=== PATIENT | male | born 1955 | race Caucasian/White ===

== ENCOUNTER 2020-06-14 14:39 | Emergency (ER) | payer OTHER, MEDICARE, SELFPAY ==
[2020-06-14 14:53] VITALS: BP 156/69; BP 164/75; PULSE 62; PULSE 69; RESP 18; TEMP 36.6; O2SAT 100; BMI 23.6
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
[2020-06-14 16:00] VITALS: BP 149/69; PULSE 69; RESP 18; TEMP 37.4; O2SAT 98
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
[2020-06-14] MEDS: HYDROcodone Bit/Acetam 5/325 TABLET 1 TAB PO (17:01)
--- NOTE | 2020-06-14 17:10 | PC.NURSE ---
Pt's c-collar cleared by . Medicated for pain. VSS.
== END 2020-06-14 18:00 | disposition home or self-care (01) ==
PROVIDERS: Emergency Provider Emergency Medicine
DX: S13.4XXA Sprain of ligaments of cervical spine, initial encounter (principal); S16.1XXA Strain of muscle, fascia and tendon at neck level, initial encounter; M54.2 Cervicalgia; M25.521 Pain in right elbow; R07.89 Other chest pain; V43.62XA Car passenger injured in collision with other type car in traffic accident, initial encounter; Y93.9 Activity, unspecified; Y92.410 Unspecified street and highway as the place of occurrence of the external cause; Y99.9 Unspecified external cause status; Z79.899 Other long term (current) drug therapy
CPT/HCPCS: 70450; 71250; 72125; 73080; 99283; 99284

== ENCOUNTER 2020-08-25 07:07 | Outpatient (REF) | payer MEDICARE, SELFPAY ==
[2020-08-25 11:32] LABS: Hemoglobin 15.7 g/dl (14.0-18.0); Mean Corpuscular HGB Conc 32.7 g/dl (31.0-36.0); Mean Corpuscular Hemoglobin 30.5 pg (27.0-33.0); Mean Corpuscular Volume 93.2 fL (80-98); Mean Platelet Volume 10.5 fL (9.4-12.4); Platelet Count 316 X10*3/uL (160-400); Red Blood Count 5.15 X10*6/uL (4.60-5.80); Red Cell Distribution Width 12.7 % (11.0-16.0); White Blood Count 5.5 X10*3/uL (4.8-10.8)
[2020-08-25 11:56] LABS: Alanine Aminotransferase 20 U/L (0-40); Albumin Level 4.8 g/dL (3.5-5.0); Alkaline Phosphatase 40 U/L (39-117); Anion Gap 13 (12-20); Aspartate Amino Transferase 23 U/L (5-37); Bilirubin Total 0.7 mg/dL (0.0-1.0); Blood Urea Nitrogen 10 mg/dL (9-16); Calcium 9.3 mg/dL (8.4-10.2); Carbon Dioxide 28 mmol/L (22-29); Chloride 103 mmol/L (96-108); Cholesterol 173 mg/dL; Estimated Glomerular Filt Rate > 60; Glucose Fasting 112 mg/dL (60-99); HDL Cholesterol 52 mg/dL; LDL Cholesterol Calculated 104 mg/dl; Potassium 4.3 mmol/l (3.3-5.1); Sodium 140 mmol/L (135-145); Total Protein 7.7 g/dL (6.5-8.0); Triglycerides 86 mg/dL
== END 2020-08-25 07:08 | disposition home or self-care (01) ==
LOC: HO.HMGCLDS 07:07
PROVIDERS: PCP Internal Medicine; Visit Provider Internal Medicine
DX: I10 Essential (primary) hypertension (principal); M47.812 Spondylosis without myelopathy or radiculopathy, cervical region
CPT/HCPCS: 36415; 80053; 80061; 85027

== ENCOUNTER 2020-09-09 09:09 | Emergency (ER) | payer MEDICARE, SELFPAY ==
--- NOTE | ~2020-09-09 | CT_ITS ---
EXAMINATION: CT HEAD WITHOUT CONTRAST CLINICAL INFORMATION: Dizziness COMPARISON: None TECHNIQUE: Contiguous axial imaging was performed from the skull base to vertex without intravenous administration of contrast. This CT examination was performed using dose optimization techniques as appropriate, variously including the following: *Automated exposure control *Adjustment of mA and/or kV according to patient size (this includes techniques or standardized protocols for targeted exams where dose is matched to indication/reason for exam; i.e. extremities or head) *Use of iterative reconstruction technique DLP: 701 mGy-cm FINDINGS: There is no evidence of acute intracranial hemorrhage or territorial infarction. No abnormal mass effect or midline shift is seen. Dent to white matter differentiation is well preserved. No extra-axial fluid collections are identified. The ventricles are symmetrical but enlarged. There is mild periventricular hypodensity in both cerebral hemispheres without mass effect The osseous structures and soft tissues are normal. The mastoid air cells and visualized portions of the paranasal sinuses are well aerated. CT/CT head/brain wo con IMPRESSION: No acute intracranial process seen. Mild cerebral volume loss with chronic small vessel ischemic changes in both cerebral hemispheres.
[2020-09-09 09:23] VITALS: BP 138/58; BP 168/84; PULSE 57; PULSE 69; RESP 12; TEMP 36; O2SAT 100; O2SAT 96; BMI 23.4
--- NOTE | 2020-09-09 09:31 | ECG_ITS ---
Test Reason : DIZZINESS Blood Pressure : / mmHG Vent. Rate : 057 BPM Atrial Rate : 057 BPM P-R Int : 180 ms QRS Dur : 146 ms QT Int : 498 ms P-R-T Axes : 055 005 065 degrees QTc Int : 484 ms Sinus bradycardia Left bundle branch block Abnormal ECG When compared with ECG of 05-JUL-2017 07:06, No significant change was found Referred By: Madelyn Elliott Electronically Signed By:DION ROGERS
--- NOTE | 2020-09-09 09:32 | ED.DIZZY ---
HPI - Dizziness General Chief Complaint: Dizziness Stated Complaint: vertigo Time Seen by Provider: 09/09/20 09:21 History of Present Illness HPI Narrative: 64 years old with a history of vertigo in the past. Presents today having sudden onset of spinning sensation that trigger nausea vomiting. It was extremely abrupt. It is worse with movement. Improved with resting. Patient claims that she finished yoga. Subsequently the symptoms started. There is no focal weakness. There is no headache. No head injury. No coughing or congestion or upper respiratory symptoms. No chest pain. Related Data Home Medications Medication Instructions Recorded Confirmed baclofen 10 mg tablet 10 mg PO TID 08/22/20 08/22/20 omeprazole 20 mg capsule,delayed 20 mg PO BID 08/22/20 08/22/20 release Previous Rx's Medication Instructions Recorded lidocaine [Lidoderm] 1 patch TOPICAL DAILY #15 ea 06/14/20 amlodipine 2.5 mg tablet 2.5 mg PO DAILY #90 tab 08/22/20 meclizine 25 mg PO TID PRN #14 tab 09/09/20 ondansetron 4 mg PO TID PRN 5 Days #10 tab 09/09/20 Allergies Allergy/AdvReac Type Severity Reaction Status Date / Time Penicillins [PENICILLINS] Allergy Unknown RASH Verified 06/14/20 17:00 Review of Systems Review of Systems: Constitutional: No Weight loss, No Fever, No Chills, No Night Sweats, No Fatigue, No Malaise ENT/Mouth: No Hearing loss, No Ear Pain, No Nasal Congestion, No Sinus Pain, No Hoarseness, No sore throat, No Rhinorrhea, No Swallowing Difficulty Eyes: No Eye Pain, No Swelling, No Redness, No Foreign Body, No Discharge, No Vision Changes Cardiovascular: No Chest Pain, No SOB, No Dyspnea on Exertion, No Orthopnea, No Edema, No Palpitations Respiratory: No Cough, No Sputum, No Wheezing, No Smoke Exposure, No Dyspnea Gastrointestinal: No Nausea, No Vomiting, No Diarrhea, No Constipation, No abdominal Pain, No Hematochezia, No Melena Genitourinary: no irregular bleeding, No Dysuria, No Urinary Frequency, No Hematuria, No Urinary Incontinence, No Urgency, No Flank Pain, No Urinary Flow Changes, No Hesitancy Musculoskeletal: No joint pain, No Myalgias, No Joint Swelling Skin: No Skin Lesions, No rash Neuro: No Weakness, No Numbness, No Paresthesias, No Loss of Consciousness, positive vertigo, No Headache Psych: No Anxiety/Panic, No Depression, No SI/HI/AH/VH, No Social Issues, Heme/Lymph: No Bruising, No Bleeding,No Lymphadenopathy Endocrine: No Polyuria, No Polydipsia, No Temperature Intolerance PMFSH Past Medical History Attestation statement: The following information was validated with the patient. Medical History Cervical spine degeneration GERD (gastroesophageal reflux disease) HTN (hypertension) Normal colonoscopy Surgical History H/O cervical spine surgery Hx of cholecystectomy Social History Social History Alcohol intake: never Smoking Status: Never smoker Substance Use Type: Marijuana Advance Directives: No Advance Directives Information Provided: No Physical Exam Vital Signs: Vital Signs: Last Vital Signs Temp 96.8 F 09/09/20 09:23 Pulse 57 09/09/20 09:23 Resp 12 09/09/20 09:23 BP 138/58 L 09/09/20 09:23 Pulse Ox 96 09/09/20 09:23 Body Mass Index 23.4 Appearance: Alert. Oriented X3. No acute distress. Eyes: Pupils equal, round and reactive to light. ENT: Pharynx normal. Neck: Normal inspection. Neck supple. No lymph nodes noted. No crepitus CVS: Normal heart rate and rhythm. Pulses normal. Normal S1 and S2 Respiratory: No respiratory distress. Breath sounds normal. No Wheezing. No rales Abdomen: Soft and nontender. No rigidity. No distention. good BS x4 Skin: Skin warm and dry. Normal skin color. Normal skin turgor. Extremities: No lower extremity edema. Neurovascular intact to all extremities. No Lacerations. No Rash Neuro: Oriented X 3. No motor deficit. No sensory deficit. Moving all extermities. No slurred speech. Positive Hallpike MDM - Dizziness MDM Narrative Medical decision making narrative: Patient's symptoms sudden onset. Extreme. Took Antivert prior to arrival. Upon arrival symptoms improving while in the emergency department. CT scan of the head was negative. Electrolytes unremarkable. Will discharge patient home. History of similar symptoms. The symptoms were very abrupt in onset. Was extreme many had initially. This is all consistent with having peripheral vertigo. He is neurologically intact. Currently in stable condition. Differential Diagnosis Differential diagnosis: Likely benign paroxysmal positional vertigo Medical Records Attestation: I reviewed the patient's medical records. Lab Data Attestation: I reviewed the patient's lab results. Result diagrams: 09/09/20 10:28 Labs: Lab Results 09/09/20 09/09/20 Range/Units 10:28 10:28 Sodium 139 (135-145) mmol/L Potassium 4.4 (3.3-5.1) mmol/L Chloride 105 (96-108) mmol/L Carbon Dioxide 25 (22-29) mmol/L Anion Gap 13 (12-20) BUN 12 (9-16) mg/dL Creatinine 0.91 (0.5-1.4) mg/dL Estim Creat Clear Calc 78.2 Estimated GFR > 60 Random Glucose 129 H (60-115) mg/dL Calcium 8.9 (8.4-10.2) mg/dL Total Bilirubin 1.0 (0.0-1.0) mg/dL Direct Bilirubin 0.5 (0.0-0.5) mg/dL AST 25 (5-37) U/L ALT 19 (0-40) U/L Alkaline Phosphatase 34 L (39-117) U/L Troponin I High Sens < 3.5 (<3.5-35.0) ng/L Total Protein 6.9 (6.5-8.0) g/dL Albumin 4.3 (3.5-5.0) g/dL Discharge Plan Discharge Clinical Impression: Benign paroxysmal positional vertigo Patient Disposition: Home, Self-Care Instructions: Benign Paroxysmal Positional Vertigo (ED) Prescriptions: New meclizine 25 mg tablet 25 mg PO TID PRN (Reason: dizziness) Qty: 14 RF: 0 ondansetron 4 mg tablet,disintegrating 4 mg PO TID PRN (Reason: nausea and vomiting) 5 Days Qty: 10 RF: 0 No Action lidocaine [Lidoderm] 5 % adhesive patch,medicated 1 patch topical DAILY Qty: 15 RF: 0 baclofen 10 mg tablet 10 mg PO TID RF: 0 omeprazole 20 mg capsule,delayed release(DR/EC) 20 mg PO BID RF: 0 amlodipine 2.5 mg tablet 2.5 mg PO DAILY Qty: 90 RF: 3 Referrals: Lore Bishop MD [Primary Care Provider] - 2 days
[2020-09-09] MEDS: ondansetron HCL 4 MG/2 ML VIAL IVPUSH (10:35)
[2020-09-09 11:00] LABS: Alanine Aminotransferase 19 U/L (0-40); Albumin Level 4.3 g/dL (3.5-5.0); Alkaline Phosphatase 34 U/L (39-117); Anion Gap 13 (12-20); Aspartate Amino Transferase 25 U/L (5-37); Bilirubin Direct 0.5 mg/dL (0.0-0.5); Blood Urea Nitrogen 12 mg/dL (9-16); Calcium 8.9 mg/dL (8.4-10.2); Carbon Dioxide 25 mmol/L (22-29); Chloride 105 mmol/L (96-108); Creatinine Clr Calc Pharmacy 78.2; Estimated Glomerular Filt Rate > 60; Glucose Random 129 mg/dL (60-115); Potassium 4.4 mmol/L (3.3-5.1); Sodium 139 mmol/L (135-145); Total Protein 6.9 g/dL (6.5-8.0)
[2020-09-09 11:05] LABS: Troponin-I High Sensitivity < 3.5 ng/L (<3.5-35.0)
[2020-09-09 13:33] VITALS: BP 106/56; PULSE 68; RESP 16; O2SAT 97
== END 2020-09-09 13:50 | disposition home or self-care (01) ==
PROVIDERS: Emergency Provider Emergency Medicine Emergency Medical Services; PCP Internal Medicine
DX: H81.10 Benign paroxysmal vertigo, unspecified ear (principal); I10 Essential (primary) hypertension
CPT/HCPCS: 36415; 70450; 80048; 80076; 84484; 93005; 96374; 99283; 99284; J2405

== ENCOUNTER 2020-12-07 07:17 | Outpatient (REF) | payer MEDICARE, SELFPAY ==
[2020-12-07 11:50] LABS: Alanine Aminotransferase 12 U/L (0-40); Albumin Level 4.4 g/dL (3.5-5.0); Alkaline Phosphatase 31 U/L (39-117); Anion Gap 15 (12-20); Aspartate Amino Transferase 20 U/L (5-37); Bilirubin Total 1.1 mg/dL (0.0-1.0); Blood Urea Nitrogen 12 mg/dL (9-16); Calcium 9.2 mg/dL (8.4-10.2); Carbon Dioxide 25 mmol/L (22-29); Chloride 106 mmol/L (96-108); Estimated Glomerular Filt Rate > 60; Glucose Fasting 101 mg/dL (60-99); Potassium 4.2 mmol/L (3.3-5.1); Sodium 142 mmol/L (135-145)
[2020-12-07 11:53] LABS: Estimated Average Glucose 100 mg/dL; Hemoglobin A1c % 5.1 %
== END 2020-12-07 07:18 | disposition home or self-care (01) ==
LOC: HO.HMGCLDS 07:17
PROVIDERS: PCP Internal Medicine; Visit Provider Internal Medicine
DX: I10 Essential (primary) hypertension (principal); R73.9 Hyperglycemia, unspecified
CPT/HCPCS: 36415; 80053; 83036

== ENCOUNTER 2021-01-23 15:07 | Emergency (ER) | payer MEDICARE, SELFPAY ==
[2021-01-23] VITALS (7 sets, daily range): BP systolic 117–130; BP diastolic 55–66; PULSE 60–74; RESP 16; TEMP 36.8; O2SAT 98–100; BMI 20.5
--- NOTE | ~2021-01-23 | XR_ITS ---
EXAMINATION: XR CHEST CLINICAL INFORMATION: Dizziness. Pneumonia. COMPARISON: CT chest 06/14/2020. Chest x-ray 05/25/2007 TECHNIQUE: Frontal view of the chest was obtained. FINDINGS: No significant abnormality is noted involving the heart, lungs, mediastinum, bony thorax or soft tissues. XR/XR chest 1V IMPRESSION: Unremarkable examination.
--- NOTE | ~2021-01-23 | CT_ITS ---
EXAMINATION: CT angio head neck CLINICAL INFORMATION: Dizziness. Stroke. COMPARISON: CT scan of the head 09/09/2020. TECHNIQUE: Crew Director images were obtained. A CT angiogram of the head and neck was performed in the arterial phase after the intravenous administration of 70 mL Omnipaque 350. Pre and delayed postcontrast images of the head were also obtained. MIP reconstructions were generated in multiple orientations at the acquisition workstation. Multiple three-dimensional surface rendered images and maximum intensity projection images were generated on a dedicated 3-D lab workstation. Arterial stenoses are measured in accordance with NASCET criteria or similar method if applicable. This CT examination was performed using dose optimization techniques as appropriate, including one or more of the following: Automated exposure control, iterative reconstruction, and adjustment of technique factors (mA and/or kVp) according to patient size (this includes techniques or standardized protocols for targeted exams where dose is matched to indication/reason for exam). Total exam dose-length product 2302 mGy-cm FINDINGS: Head: There is no acute intracranial hemorrhage or abnormal extra-axial collection. Postcontrast images reveal no abnormal mass or enhancement within the intracranial compartment. No intracranial mass effect or midline shift. Lateral and third ventricles are normal. No hydrocephalus. Scattered ill-defined foci of hypoattenuation are visualized within the periventricular white matter. Dent-white matter differentiation is otherwise preserved and there is no evidence of acute territorial infarct. The calvarium and skull base are intact. Mastoid air cells and middle ear cavities are well aerated. No active paranasal sinus disease. CT angiogram neck: Scattered atheromatous calcification involves the aortic arch apex. Origins of major aortic branches are widely patent. Common carotid arteries are normal. A small amount of atheromatous calcification involves both carotid bifurcations. There are beaded irregular contour is of both extracranial internal carotid arteries indicating the presence of fibromuscular dysplasia. This finding is well depicted on sagittal MIP image 55 of 147 series 12. Otherwise no stenosis of the cervical carotid arteries. The cervical segments of the vertebral arteries as well as their origins are patent. Fibromuscular dysplasia involving the V2-V3 segments of both vertebral arteries. CT angiogram head: Intracranial internal carotid arteries are patent. The intradural vertebral artery segments and basilar artery are patent. Anterior, middle, and posterior cerebral artery complexes are normal. No intracranial vessel occlusion. Other: Soft tissues of the neck including the thyroid gland are normal. There is multilevel degenerative spondylosis of the cervical spine. No worrisome lytic or blastic osseous lesion. CT/CT angio head neck IMPRESSION: There is fibromuscular dysplasia involving both extra cranial internal carotid arteries and short segments of both vertebral arteries. Otherwise no stenosis of the cervical carotid or vertebral arteries. No intracranial large vessel occlusion. There are a few scattered chronic small vessel ischemic changes within the periventricular white matter. No evidence of acute territorial infarct or hemorrhage. No abnormal intracranial mass or enhancement.
--- NOTE | 2021-01-23 15:25 | PC.NURSE ---
pt reports he woke with dizziness today, went back to sleep and then woke to the room spinning. He states he later vomited once. Pt continued to feel dizzy and called EMS then vomited in the ambulance once. He now reports facial numbness. Face is symmetrical, tongue midline. Speech is clear but slow. Pt states he feels funny, out of it . He reports facial numbness. 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 Pt has no limb drift or limb ataxia. Pupils equal and reactive.
--- NOTE | 2021-01-23 15:35 | ECG_ITS ---
Test Reason : DIZZINESS Blood Pressure : / mmHG Vent. Rate : 060 BPM Atrial Rate : 060 BPM P-R Int : 184 ms QRS Dur : 142 ms QT Int : 498 ms P-R-T Axes : 058 018 076 degrees QTc Int : 498 ms Normal sinus rhythm Left bundle branch block Abnormal ECG When compared with ECG of 09-SEP-2020 09:54, No significant change was found Referred By: William Cueva Electronically Signed By:Ritesh Carreon
[2021-01-23] MEDS: diazePAM 5 MG TABLET PO (16:06)
[2021-01-23] MEDS: ondansetron HCL 4 MG/2 ML VIAL IVPUSH (16:06)
[2021-01-23] MEDS: 0.9 % Sodium Chloride 1,000 ML 999 ML IV (16:06)
[2021-01-23 16:07] LABS: Basophils Absolute Auto 0.1 X10*3/uL (0.0-0.2); Basophils Percent Auto 0.4 % (0-2); Eosinophils Percent Auto 0.1 % (0-4); Hematocrit 40.6 % (42-52); Hemoglobin 14.1 g/dl (14.0-18.0); Imm Gran Abs Auto 0.03 X10*3/uL (0.00-0.03); Imm Gran Pct Auto 0.2 % (0.0-0.4); Lymphocytes Absolute Auto 0.6 X10*3/uL (1.2-4.9); Lymphocytes Percent Auto 4.9 % (20-40); MANUAL DIFF FLAG SCAN; Mean Corpuscular HGB Conc 34.7 g/dl (31.0-36.0); Mean Corpuscular Hemoglobin 31.1 pg (27.0-33.0); Mean Corpuscular Volume 89.4 fL (80-98); Mean Platelet Volume 9.5 fL (9.4-12.4); Monocytes Absolute Auto 0.4 X10*3/uL (0.1-1.2); Monocytes Percent Auto 3.2 % (2-11); Neutrophils Absolute Auto 11.7 X10*3/uL (2.0-8.3); Neutrophils Percent Auto 91.2 % (45-73); Platelet Count 235 X10*3/uL (160-400); Red Blood Count 4.54 X10*6/uL (4.60-5.80); SCAN SMEAR FLAG 1; White Blood Count 12.8 X10*3/uL (4.8-10.8)
[2021-01-23 16:13] LABS: INTERNATIONAL NORM RATIO 1.1 (0.9-1.1); Prothrombin Time 13.4 SEC (10.8-13.0)
[2021-01-23 16:15] LABS: Partial Thromboplastin Time 28.5 SEC (24.1-38.0)
--- NOTE | 2021-01-23 16:18 | ED.DIZZY ---
HPI - Dizziness General Chief Complaint: Dizziness Stated Complaint: WOKE UP DIZZY, ROOM SPINNING W/NAUSEA Time Seen by Provider: 01/23/21 15:24 Source: patient Mode of arrival: ambulatory Limitations: no limitations History of Present Illness HPI Narrative: Patient presents ED for dizziness described as the room spinning. Patient states he woke up at 6 am with dizziness and nausea. Patient states hard to ambulate due to dizziness. Patient has history of bad vertigo. Patient states he took 3 meclizine pills to no relief. Patient denies any slurred speech, loss of vision, paralysis of extremities, facial droop, chest pain, shortness of breath, or headache. MD elicited complaint: dizziness Related Data Home Medications Medication Instructions Recorded Confirmed baclofen 10 mg tablet 10 mg PO TID 08/22/20 12/05/20 Previous Rx's Medication Instructions Recorded lidocaine [Lidoderm] 1 patch TOPICAL DAILY #15 ea 06/14/20 amlodipine 2.5 mg tablet 2.5 mg PO DAILY #90 tab 08/22/20 ondansetron 4 mg PO TID PRN 5 Days #10 tab 09/09/20 meclizine 25 mg tablet 25 mg PO TID PRN #60 tab 09/15/20 omeprazole 20 mg capsule,delayed 20 mg PO BID #180 cap 12/07/20 release Allergies Allergy/AdvReac Type Severity Reaction Status Date / Time Penicillins [PENICILLINS] Allergy Unknown RASH Verified 12/05/20 12:13 Review of Systems Review of Systems: Yes all other systems are reviewed and are negative Constitutional: Constitutional: Reports as per HPI and Reports no additional constitutional complaints Eyes: Eyes: Reports as per HPI and Reports no additional eye complaints ENT: Reports system reviewed and no additional complaints, except as documented, Reports as per HPI, Reports vertigo and Reports dizziness Cardiovascular: Cardiovascular: Reports as per HPI and Reports no additional cardiovascular complaints Respiratory: Respiratory: Reports as per HPI and Reports no additional respiratory complaints Gastrointestinal: Gastrointestinal: Reports as per HPI and Reports no additional gastrointestinal complaints Genitourinary: Genitourinary: Reports no additional male genitourinary complaints and Reports as per HPI Musculoskeletal: Musculoskeletal: Reports no additional musculoskeletal complaints and Reports as per HPI Neurologic: Reports system reviewed and no additional complaints, except as documented, Reports as per HPI, Reports vertigo and Reports dizziness Psychiatric: Psychiatric: Reports no additional psychiatric complaints and Reports as per HPI [facility] Past Medical History Medical History (Updated 01/23/21 @ 19:48 by ANA MARIA Owens) Cervical spine degeneration GERD (gastroesophageal reflux disease) HTN (hypertension) Hyperglycemia Normal colonoscopy Vertigo Surgical History H/O cervical spine surgery Hx of cholecystectomy Social History Social History 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, 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 Alcohol intake: never Patient Tobacco Use Status: Never used Tobacco Smoked in Last 30 Days: No Use of substances other than those prescribed or required for medical reasons: No Substance Use Type: Marijuana Advance Directives: No Advance Directives Information Provided: No Physical Exam Vital Signs: Vital Signs: Last Vital Signs Temp 98.3 F 01/23/21 19:21 Pulse 74 01/23/21 19:21 Resp 16 01/23/21 19:21 BP 119/63 01/23/21 19:21 Pulse Ox 100 01/23/21 19:21 Body Mass Index 20.5 Const: General: cooperative, healthy appearing, comfortable, no acute distress, well developed, alert, awake and Physically active Orientation/consciousness: patient oriented x3 HENMT: Head: Yes normal to inspection, Yes No palpable skull fracture present, Yes normocephalic, Yes atraumatic and Yes abrasion Eyes: Other: horizontal nystagmus. General: appearance normal, both eyes and all related structures Neck: Neck: Yes normal visual inspection and Yes full ROM Chest: Chest palpation & inspection: normal inspection of the chest and normal palpation of entire chest wall Resp: Effort & Inspection: normal respiratory effort and able to speak in complete sentences Auscultation: clear to auscultation bilaterally Cardio: Jugular venous distension: no JVD Heart sounds: S1 normal heart sound present and S2 normal heart sound present GI: Inspection: Yes normal to inspection and No abdominal wall ecchymosis Palpation (GI): Soft to palpation, not firm, nontender, no guarding and not rigid : General: No CVA tenderness and Yes no CVA tenderness Back/Spine/Pelvis: Back: no CVA tenderness, No CVA tenderness and No back tenderness Skin: General skin exam: no rashes or lesions noted and elasticity normal Neuro: Other: Negative facial droop. Negative slurred speech. All extremities equal strength 5+. [id number] rapid hand movement. General: patient oriented x3, moves all extremities, Normal light touch and pain sensation and CN's II-XI intact bilaterally Cranial nerves: Yes CN's II-XII intact bilaterally Extrem: General: Yes normal to inspection and Yes full ROM Psych: Appearance: grossly normal, well kempt and not disheveled Course Course Course Narrative: History physical exam indicate vertigo, but due to age with a medical workup. Presently no neuro deficit. Risk kidney function normal was sent for head CTA. Also will do cardiac evaluation. Reevaluation(s) Reevaluation #1: Patient's troponin negative. EKG negative for STEMI. EKG negative for new changes. Labs are baseline. Patient given Valium, Zofran, fluids. Time: 16:00 Reevaluation #2: Patient feels better after receiving Valium and fluids. Head CT negative for signs of stroke or emboli in the carotid. I walked the patient around the ER by himself with normal gait and no ataxia. Waiting for chest x-ray and UA to make sure there is no infection Time: 18:52 Reevaluation #3: Patient's chest x-ray negative for pneumonia. UA came back normal and negative for UTI. Not suspecting stroke. Troponin negative after dizziness since 06:00. Patient informed to continue taking his meclizine Time: 19:46 MDM - Dizziness MDM Narrative Medical decision making narrative: Vertigo. Lab Data Result diagrams: 01/23/21 16:00 01/23/21 16:00 Labs: Lab Results 01/23/21 01/23/21 01/23/21 Range/Units 16:00 16:00 16:00 WBC 12.8 H (4.8-10.8) X10*3/uL RBC 4.54 L (4.60-5.80) X10*6/uL Hgb 14.1 (14.0-18.0) g/dl Hct 40.6 L (42-52) % MCV 89.4 (80-98) fL MCH 31.1 (27.0-33.0) pg MCHC 34.7 (31.0-36.0) g/dl RDW 13.0 (11.0-16.0) % Plt Count 235 D (160-400) X10*3/uL MPV 9.5 (9.4-12.4) fL Immature Gran % (Auto) 0.2 (0.0-0.4) % Neut % (Auto) 91.2 H (45-73) % Lymph % (Auto) 4.9 L (20-40) % [place] % (Auto) 3.2 (2-11) % Eos % (Auto) 0.1 (0-4) % Baso % (Auto) 0.4 (0-2) % Lymph # (Auto) 0.6 L (1.2-4.9) X10*3/uL [place] # (Auto) 0.4 (0.1-1.2) X10*3/uL Eos # (Auto) 0.0 (0.0-0.4) X10*3/uL Baso # (Auto) 0.1 (0.0-0.2) X10*3/uL Abs Immat Gran (auto) 0.03 (0.00-0.03) X10*3/uL Absolute Neuts (auto) 11.7 H (2.0-8.3) X10*3/uL Absolute Nucleated RBC 0.000 (0.0-0.012) X10*3/uL Nucleated RBC % (auto) 0.0 (0.0-0.2) /100WBC Smear Tech's Comments VERIFIED PT 13.4 H (10.8-13.0) SEC INR 1.1 (0.9-1.1) APTT 28.5 (24.1-38.0) SEC Sodium 141 (135-145) mmol/L Potassium 3.8 (3.3-5.1) mmol/L Chloride 109 H (96-108) mmol/L Carbon Dioxide 20 L (22-29) mmol/L Anion Gap 16 (12-20) BUN 11 (9-16) mg/dL Creatinine 0.80 (0.5-1.4) mg/dL Estim Creat Clear Calc 78.6 Estimated GFR > 60 Random Glucose 150 H (60-115) mg/dL Calcium 9.0 (8.4-10.2) mg/dL Magnesium 1.7 (1.6-2.6) mg/dL Total Bilirubin 0.8 (0.0-1.0) mg/dL AST 17 (5-37) U/L ALT 13 (0-40) U/L Alkaline Phosphatase 31 L (39-117) U/L Troponin I High Sens (<3.5-35.0) ng/L Total Protein 6.5 (6.5-8.0) g/dL Albumin 4.2 (3.5-5.0) g/dL Urine Color Urine Appearance Urine pH (5.0-8.0) Ur Specific [place] (1.005-1.025) Urine Protein (NEG-TRACE) MG/DL Urine Glucose (UA) (NEG) MG/DL Urine Ketones (NEG) MG/DL Urine Blood (NEG) Urine Nitrite (NEG) Ur Leukocyte Esterase (NEG) 01/23/21 01/23/21 Range/Units 16:00 18:57 WBC (4.8-10.8) X10*3/uL RBC (4.60-5.80) X10*6/uL Hgb (14.0-18.0) g/dl Hct (42-52) % MCV (80-98) fL MCH (27.0-33.0) pg MCHC (31.0-36.0) g/dl RDW (11.0-16.0) % Plt Count (160-400) X10*3/uL MPV (9.4-12.4) fL Immature Gran % (Auto) (0.0-0.4) % Neut % (Auto) (45-73) % Lymph % (Auto) (20-40) % [place] % (Auto) (2-11) % Eos % (Auto) (0-4) % Baso % (Auto) (0-2) % Lymph # (Auto) (1.2-4.9) X10*3/uL [place] # (Auto) (0.1-1.2) X10*3/uL Eos # (Auto) (0.0-0.4) X10*3/uL Baso # (Auto) (0.0-0.2) X10*3/uL Abs Immat Gran (auto) (0.00-0.03) X10*3/uL Absolute Neuts (auto) (2.0-8.3) X10*3/uL Absolute Nucleated RBC (0.0-0.012) X10*3/uL Nucleated RBC % (auto) (0.0-0.2) /100WBC Smear Tech's Comments PT (10.8-13.0) SEC INR (0.9-1.1) APTT (24.1-38.0) SEC Sodium (135-145) mmol/L Potassium (3.3-5.1) mmol/L Chloride (96-108) mmol/L Carbon Dioxide (22-29) mmol/L Anion Gap (12-20) BUN (9-16) mg/dL Creatinine (0.5-1.4) mg/dL Estim Creat Clear Calc Estimated GFR Random Glucose (60-115) mg/dL Calcium (8.4-10.2) mg/dL Magnesium (1.6-2.6) mg/dL Total Bilirubin (0.0-1.0) mg/dL AST (5-37) U/L ALT (0-40) U/L Alkaline Phosphatase (39-117) U/L Troponin I High Sens < 3.5 (<3.5-35.0) ng/L Total Protein (6.5-8.0) g/dL Albumin (3.5-5.0) g/dL Urine Color YELLOW Urine Appearance CLEAR Urine pH 7.5 (5.0-8.0) Ur Specific [place] 1.010 (1.005-1.025) Urine Protein NEG (NEG-TRACE) MG/DL Urine Glucose (UA) NEG (NEG) MG/DL Urine Ketones >=80 (NEG) MG/DL Urine Blood NEG (NEG) Urine Nitrite NEG (NEG) Ur Leukocyte Esterase NEG (NEG) ECG Data Interpretation: Normal sinus rhythm. Old left bundle branch block. Ventricular rate 60 P appearance for 184. QRS 142. QTC 498. Negative STEMI Discharge Plan Discharge Clinical Impression: Vertigo Patient Disposition: Home, Self-Care Instructions: Vertigo (ED) Additional Instructions: Return to the ED for any slurred speech, loss of vision, paralysis of extremities, facial droop, headache, severe dizziness, chest pain, shortness of breath, inability to walk, change in gait, or any other concerning symptoms. Continue taking meclizine as prescribed. Head CT scan came back normal. Your blood work came back normal. EKG and troponin negative for heart attack. Chest x-ray was negative for pneumonia. Urine was negative for UTI. Please follow-up with your PCP Prescriptions: No Action omeprazole 20 mg capsule,delayed release(DR/EC) 20 mg PO BID Qty: 180 RF: 3 lidocaine [Lidoderm] 5 % adhesive patch,medicated 1 patch topical DAILY Qty: 15 RF: 0 ondansetron 4 mg tablet,disintegrating 4 mg PO TID PRN (Reason: nausea and vomiting) 5 Days Qty: 10 RF: 0 meclizine 25 mg tablet 25 mg PO TID PRN (Reason: dizziness) Qty: 60 RF: 0 baclofen 10 mg tablet 10 mg PO TID RF: 0 amlodipine 2.5 mg tablet 2.5 mg PO DAILY Qty: 90 RF: 3 Interventions: ED Discharge Assessment Last Done: 01/23/21 19:59 Discharge Date/Time: 01/23/21 20:00 Print Language: Yoruba
[2021-01-23 16:25] LABS: SLIDE REVIEW VERIFIED
[2021-01-23 16:39] LABS: Alanine Aminotransferase 13 U/L (0-40); Albumin Level 4.2 g/dL (3.5-5.0); Alkaline Phosphatase 31 U/L (39-117); Anion Gap 16 (12-20); Aspartate Amino Transferase 17 U/L (5-37); Bilirubin Total 0.8 mg/dL (0.0-1.0); Blood Urea Nitrogen 11 mg/dL (9-16); Carbon Dioxide 20 mmol/L (22-29); Chloride 109 mmol/L (96-108); Creatinine Clr Calc Pharmacy 78.6; Estimated Glomerular Filt Rate > 60; Glucose Random 150 mg/dL (60-115); Magnesium 1.7 mg/dL (1.6-2.6); Potassium 3.8 mmol/L (3.3-5.1); Sodium 141 mmol/L (135-145); Total Protein 6.5 g/dL (6.5-8.0)
[2021-01-23 16:47] LABS: Troponin-I High Sensitivity < 3.5 ng/L (<3.5-35.0)
[2021-01-23] MEDS: iohexoL 350 MG/ML 100 ML INFUS..BTL IV (17:16)
[2021-01-23 19:04] LABS: Appearance Urine CLEAR; Color Urine YELLOW; Glucose Urine UA NEG (NEG); Leukocyte Esterase Urine NEG (NEG); Nitrite Urine NEG (NEG); PH 7.5 (5.0-8.0); Urine Blood NEG (NEG); Urine Ketones >=80 MG/DL (NEG); Urine Protein NEG (NEG-TRACE)
== END 2021-01-23 20:00 | disposition home or self-care (01) ==
PROVIDERS: Physician Assistant; Emergency Provider Emergency Medicine
DX: R42 Dizziness and giddiness (principal); I10 Essential (primary) hypertension; Z79.899 Other long term (current) drug therapy
CPT/HCPCS: 36415; 70496; 70498; 71045; 80053; 81003; 83735; 84484; 85025; 85610; 85730; 93005; 96361; 96374; 99285; J2405; Q9967

== ENCOUNTER 2021-03-01 13:00 | Outpatient (RCR) | payer MEDICARE, SELFPAY ==
[2021-02-08 16:03] VITALS: BP 150/82; PULSE 67; O2SAT 97
--- NOTE | 2021-02-08 17:56 | MHC.PT.EP ---
[facility] [place] Office [place] Office [place] Office [address] Gita Garza [address] [phone] F: [phone] F: [phone] F: [phone] F: [phone] Physical Therapy Plan of Care Date of Evaluation: Date of Surgery: Diagnosis: This is a 65 yo male presenting to skilled PT with a script for vertigo Assessment: This is a 65 yo male presenting to skilled PT with a script for vertigo. Patient has been to the ED for BPPV twice in the past 5 months. He presented to PCP who referred him to our facility. In ED he had a CT scan which was negative for CVA. Provided with meclizine which has helped some. He reports that he has a history of vertigo, first time his symptoms occurred was 12 years ago. He went to PT and this was helpful. He reports that he is always dizzy in the morning, but the last attack was 2-3 weeks ago. He reports that does yoga every day and goes to the gym every other day. He feels off balance and feels like he needs to keep his eyes focused. He has not fallen but has gotten close. Examination shows + nystagmus with horizontal saccades and ? head thrust but patient having a hard time with cues to relax during test, (-) VBI B, and decreased cervical AROM. He was (-) for BPPV with flavia-hallpike and roll test. He notably off balance with turning, head turns and EC. He has some memory deficits as well. S/S are consistent with vestibular hypofunction and may have self corrected BPPV with time. He would benefit from PT 2x/wk for 4wks to address impairments, implement HEP and optimize functional mobility. 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 Manual therapy to restore motion and function. Therapeutic exercise to improve strength and flexibility. Neuromuscular re-education for posture and balance. Therapeutic activities to return to functional activities of daily living. Electronically signed by: Laura Epps PT Please sign and return to therapist. Thank you for your referral.
--- NOTE | 2021-04-07 07:56 | MHC.PT.DC ---
[facility] [place] Office [place] Office [place] Office [address] Gita Garza [address] [phone] F: [phone] F: [phone] F: [phone] F: [phone] Physical Therapy Discharge Report Diagnosis: This is a 65 yo male presenting to skilled PT with a script for vertigo Date of Surgery: Date of Evaluation: 02/08/21 Date of Discharge: Treatments to Date: 7 Cancellations to Date: 0 No Shows to Date: 0 Discharge Status: Discharge Summary: Patient reporting good compliance with HEP but unable to demo proper techniques or teach back. Canals were negative again. Per MD note she is ordering at CT scan but patient reports that this was not discussed and does not have an appointment. He is unsure what he is supposed to do for appointments/referrals at this time but does not want to go next door or call to ask MD. When asked what he had for lunch he replied that's a tough question and when asked if he drank water he said he did not like to often because it makes him go to the bathroom every ten minutes . Spent time educating him on possibly holding PT at this time. PT put a call into MD office to clarify POC and held patient care at this time due to limited progress made. Chart left open for 30 days prior to DC Electronically signed by: Laura Epps PT Please sign and return to therapist. Thank you for your referral.
== END 2021-04-07 07:56 | disposition home or self-care (01) ==
LOC: HO.PTCHIC 13:00
PROVIDERS: Visit Provider Internal Medicine
DX: H81.13 Benign paroxysmal vertigo, bilateral (principal)
CPT/HCPCS: 95992; 97110; 97112; 97140; 97162

== ENCOUNTER 2021-03-08 10:39 | Outpatient (REF) | payer MEDICARE, SELFPAY ==
--- NOTE | ~2021-03-08 | CT_ITS ---
EXAMINATION: CT HEAD WITHOUT CONTRAST CLINICAL INFORMATION: Dizziness intravenous COMPARISON: Previous head CT most recent September 2020 TECHNIQUE: Contiguous axial imaging was performed from the skull base to vertex without intravenous administration of contrast. This CT examination was performed using dose optimization techniques as appropriate, variously including the following: *Automated exposure control *Adjustment of mA and/or kV according to patient size (this includes techniques or standardized protocols for targeted exams where dose is matched to indication/reason for exam; i.e. extremities or head) *Use of iterative reconstruction technique DLP: 826 mGy-cm FINDINGS: There is no evidence of an extra-axial collection. There is no evidence of intra-axial or extra-axial hemorrhage. The ventricles and extra-axial CSF spaces are appropriate for age. There is mild nonspecific periventricular white matter disease. No mass, mass effect or infarct is seen. Review at bone windows is normal. No skull fracture or bone lesion is seen. Visualized paranasal sinuses, mastoid air cells and middle ears are clear. CT/CT head/brain wo con IMPRESSION: No acute findings.
== END 2021-03-08 10:40 | disposition home or self-care (01) ==
LOC: HO.CT 10:39
PROVIDERS: PCP Internal Medicine; Visit Provider Internal Medicine
DX: R42 Dizziness and giddiness (principal); H91.90 Unspecified hearing loss, unspecified ear
CPT/HCPCS: 70450

== ENCOUNTER 2021-03-30 12:37 | Outpatient (REF) | payer MEDICARE, SELFPAY ==
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
== END 2021-03-30 12:38 | disposition home or self-care (01) ==
LOC: HO.SH 12:37
PROVIDERS: Visit Provider Internal Medicine
DX: H90.3 Sensorineural hearing loss, bilateral (principal); H93.13 Tinnitus, bilateral
CPT/HCPCS: 92557; 92567

== ENCOUNTER 2021-05-17 11:13 | Outpatient (REF) | payer MEDICARE, SELFPAY ==
[2021-05-17 13:53] LABS: Blood Urea Nitrogen 9 mg/dL (9-16); Estimated Glomerular Filt Rate > 60
== END 2021-05-17 11:14 | disposition home or self-care (01) ==
LOC: HO.10HDL 11:13
PROVIDERS: Visit Provider Otolaryngology
DX: Z01.812 Encounter for preprocedural laboratory examination (principal); R42 Dizziness and giddiness
CPT/HCPCS: 36415; 82565; 84520

== ENCOUNTER 2021-05-21 10:59 | Inpatient (IN) | payer MEDICARE, SELFPAY ==
[2021-05-21] VITALS (10 sets, daily range): BP systolic 114–154; BP diastolic 54–72; PULSE 52–71; RESP 16–18; TEMP 36.3–37.3; O2SAT 96–100; BMI 20.5
--- NOTE | ~2021-05-21 | CT_ITS ---
EXAMINATION: CT ABDOMEN AND PELVIS WITH CONTRAST CLINICAL INFORMATION: Left groin pain. Known left groin hernia. Suspected incarceration/strangulation. COMPARISON: CT of the abdomen and pelvis done on 01/23/2019. TECHNIQUE: Multidetector volumetric images were obtained from the superior aspect of the liver through the pubic symphysis following administration 85 mL of Omnipaque 350 intravenous contrast. Sagittal and coronal reformatted images were obtained on the technologist's workstation. Oral contrast: No This CT examination was performed using dose optimization techniques as appropriate, variously including the following: *Automated exposure control *Adjustment of mA and/or kV according to patient size (this includes techniques or standardized protocols for targeted exams where dose is matched to indication/reason for exam; i.e. extremities or head) *Use of iterative reconstruction technique DLP: 625 mGy-cm FINDINGS: LUNG BASES: The visualized lung bases are unremarkable. LIVER, GALLBLADDER, AND BILIARY TREE: The liver is normal in size, shape, and attenuation. No focal hepatic lesion or biliary ductal dilatation is present. The gallbladder is surgically absent. PANCREAS: Unremarkable. SPLEEN: Unremarkable. ADRENAL GLANDS: Unremarkable. KIDNEYS AND URETERS: The kidneys are normal in size, shape, and attenuation. No hydronephrosis, hydroureter, or calculi seen. No perinephric stranding. BLADDER: Unremarkable. GASTROINTESTINAL TRACT: Previously documented fat-containing left inguinal hernia currently shows interval migration of distal descending and proximal sigmoid colon with significant amount of fluid within the herniated sac (25-33:3). The site of the entry point into the herniated sac appears quite narrowed. Given the presence of fluid in the herniated sac, the findings are suspicious for strangulation. Incarceration as you know is not excluded. Extensive fecal residual is noted within the large bowel. Colonic diverticulosis related changes are also noted without any CT features of acute diverticulitis. Nonvisualized appendix without any inflammatory changes around the cecum. ABDOMINAL WALL: Left inguinal large bowel containing hernia with features suspicious for subtle fibrillation is noted. Postsurgical changes of prior hernia repair on the left inguinal region. LYMPH NODES: Normal. VASCULAR: Diffuse atherosclerotic disease of the aorta and is branches without aneurysm formation. PELVIC VISCERA: Prostate is heterogeneous, enlarged, protruding into the base of the bladder. No evidence of any free fluid and/or free air. OSSEOUS STRUCTURES: No suspicious focal lesion. CT/CT abdomen pelvis w con IMPRESSION: 1. Previously documented fat-containing left inguinal hernia currently shows interval migration of the distal descending and proximal sigmoid colon with significant amount of fluid within the herniated sac. The site of entry point into the herniated sac appears quite narrowed. The findings are suspicious for strangulation. Incarceration as you know is not excluded. Postsurgical changes of prior left inguinal hernia repair. 2. No other significant interval change since 01/23/2019.
--- NOTE | 2021-05-21 11:22 | ED_ITS ---
HPI - Abdominal Pain General Chief Complaint: Abdominal Pain Stated Complaint: hernia Time Seen by Provider: 05/21/21 11:06 Source: patient Mode of arrival: ambulatory Limitations: no limitations History of Present Illness HPI narrative: 55-year-old male with history of right hernia repair presents to ED for left groin hernia pain. Patient states having left groin hernia for a long time which worsened the past week and worsened the past 2 hours. Patient states nausea and vomiting. Patient states unable to pushing back in hernia. Patient denies any constipation, fever, chills, any recent trauma. Related Data Previous Rx's Medication Instructions Recorded lidocaine 5 % topical patch 1 patch TOPICAL DAILY #15 ea 06/14/20 (Lidoderm) amlodipine 2.5 mg tablet 2.5 mg PO DAILY #90 tab 08/22/20 ondansetron 4 mg disintegrating 4 mg PO TID PRN 5 Days #10 tab 09/09/20 tablet omeprazole 20 mg capsule,delayed 20 mg PO BID #180 cap 12/07/20 release meclizine 25 mg tablet 25 mg PO TID PRN #60 tab 01/24/21 Allergies Allergy/AdvReac Type Severity Reaction Status Date / Time Penicillins [PENICILLINS] Allergy Unknown RASH Verified 02/27/21 12:30 Review of Systems Review of Systems Yes all other systems are reviewed and are negative Constitutional: Reports as per HPI and Reports no additional constitutional comp laints Eyes: Reports as per HPI and Reports no additional eye complaints Reports system reviewed and no additional complaints, except as documented and Reports as per HPI Cardiovascular: Reports as per HPI and Reports no additional cardiovascular complaints Respiratory: Reports as per HPI and Reports no additional respiratory complaints Gastrointestinal: Reports as per HPI, Reports no additional gastrointestinal complaints and Reports abdominal pain (Left groin pain) Musculoskeletal: Reports no additional musculoskeletal complaints and Reports as per HPI Skin/Breast: Reports system reviewed and no additional complaints, except as docu and Reports as per HPI Reports system reviewed and no additional complaints, except as documented and Reports as per HPI Psychiatric: Reports no additional psychiatric complaints and Reports as per HPI Physical Exam Vital Signs: Vital Signs: Last Vital Signs Temp 97.6 F 05/21/21 12:00 Pulse 59 05/21/21 16:08 Resp 16 05/21/21 12:00 BP 128/54 L 05/21/21 16:08 Pulse Ox 100 05/21/21 16:08 Body Mass Index 20.5 Const: General: cooperative, healthy appearing, comfortable, no acute distress , well developed, alert and awake Orientation/consciousness: patient oriented x3 HENMT: Head: Yes normal to inspection, Yes No palpable skull fracture present, Yes normocephalic, Yes atraumatic and No abrasion Eyes: General: appearance normal, both eyes and all related structures Neck: Neck: Yes normal visual inspection, Yes full ROM, Yes no lymphadenopathy, Yes no meningeal signs, Yes trachea midline, Yes supple and No tender Chest: Chest palpation & inspection: normal inspection of the chest and normal palpation of entire chest wall Resp: Effort & Inspection: normal respiratory effort and able to speak in complete sentences Cardio: Jugular venous distension: no JVD Heart sounds: S1 normal heart sound present and S2 normal heart sound present GI: Inspection: Yes normal to inspection and No abdominal wall ecchymosis Palpation (GI): Tenderness to palpation present (GI) (Left groin possible for hard mass does not reproducible. Very tender. ), no guarding and not rigid : General: No CVA tenderness and Yes no CVA tenderness Back/Spine/Pelvis: Back: no CVA tenderness, No CVA tenderness and No back tenderness Skin: General skin exam: no rashes or lesions noted and elasticity normal Neuro: General: patient oriented x3, gait normal, no meningeal signs and CN's II-XI intact bilaterally Cranial nerves: Yes CN's II-XII intact bilaterally Extrem: General: Yes normal to inspection and Yes full ROM Psych: Appearance: grossly normal, well kempt and not disheveled Course Course Course Narrative: Physical exam indicates hernia left groin. Patient vomiting. Hernia very hard. Will do basic labs including lactic. IV Dilaudid ordered. Zofran ordered. Reevaluation(s) Reevaluation #1: Lactic 2.1. Reduction attempt was unsuccessful. Patient too much pain even after given Dilaudid. Does not seem reducible. Was sent for CT scan. Time: 12:45 Reevaluation #2: CT scans come for strangulated hernia. Case discussed with surgeon Dr. Levin recommend patient to be admitted for operating room. She came to the ED and evaluated patient. Patient in total receive 1.5 mg of Dilaudid and 30 Toradol. Time: 17:17 MDM - Abdominal Pain Lab Data Result diagrams: 05/21/21 11:58 05/21/21 11:58 Labs: Lab Results 05/21/21 05/21/21 05/21/21 Range/Units 11:58 11:58 11:58 WBC 16.1 H (4.8-10.8) X10*3/uL RBC 4.68 (4.60-5.80) X10*6/uL Hgb 14.4 (14.0-18.0) g/dl Hct 41.5 L (42-52) % MCV 88.7 (80-98) fL MCH 30.8 (27.0-33.0) pg MCHC 34.7 (31.0-36.0) g/dl RDW 12.5 (11.0-16.0) % Plt Count 297 D (160-400) X10*3/uL MPV 9.6 (9.4-12.4) fL Immature Gran % (Auto) 0.4 (0.0-0.4) % Neut % (Auto) 89.1 H (45-73) % Lymph % (Auto) 4.9 L (20-40) % Morgan % (Auto) 5.3 (2-11) % Eos % (Auto) 0.1 (0-4) % Baso % (Auto) 0.2 (0-2) % Lymph # (Auto) 0.8 L (1.2-4.9) X10*3/uL Morgan # (Auto) 0.9 (0.1-1.2) X10*3/uL Eos # (Auto) 0.0 (0.0-0.4) X10*3/uL Baso # (Auto) 0.0 (0.0-0.2) X10*3/uL Abs Immat Gran (auto) 0.06 H (0.00-0.03) X10*3/uL Absolute Neuts (auto) 14.4 H (2.0-8.3) X10*3/uL Absolute Nucleated RBC 0.000 (0.0-0.012) X10*3/uL Nucleated RBC % (auto) 0.0 (0.0-0.2) /100WBC PT 12.4 (9.9-13.0) SEC INR 1.1 (0.9-1.1) APTT 28.4 (24.1-38.0) SEC Sodium 141 (135-145) mmol/L Potassium 3.8 (3.3-5.1) mmol/L Chloride 109 H (96-108) mmol/L Carbon Dioxide 21 L (22-29) mmol/L Anion Gap 15 (12-20) BUN 10 (9-16) mg/dL Creatinine 0.83 (0.5-1.4) mg/dL Estim Creat Clear Calc 75.8 Estimated GFR > 60 Random Glucose 131 H (60-115) mg/dL Lactic Acid (0.5-2.0) mmol/L Lactic Acid Fup @ 2Hr (0.5-2.0) mmol/L Calcium 9.4 (8.4-10.2) mg/dL Total Bilirubin 0.8 (0.0-1.0) mg/dL AST 16 (5-37) U/L ALT 13 (0-40) U/L Alkaline Phosphatase 36 L (39-117) U/L Total Protein 6.8 (6.5-8.0) g/dL Albumin 4.3 (3.5-5.0) g/dL 05/21/21 05/21/21 Range/Units 11:58 14:18 WBC (4.8-10.8) X10*3/uL RBC (4.60-5.80) X10*6/uL Hgb (14.0-18.0) g/dl Hct (42-52) % MCV (80-98) fL MCH (27.0-33.0) pg MCHC (31.0-36.0) g/dl RDW (11.0-16.0) % Plt Count (160-400) X10*3/uL MPV (9.4-12.4) fL Immature Gran % (Auto) (0.0-0.4) % Neut % (Auto) (45-73) % Lymph % (Auto) (20-40) % Morgan % (Auto) (2-11) % Eos % (Auto) (0-4) % Baso % (Auto) (0-2) % Lymph # (Auto) (1.2-4.9) X10*3/uL Morgan # (Auto) (0.1-1.2) X10*3/uL Eos # (Auto) (0.0-0.4) X10*3/uL Baso # (Auto) (0.0-0.2) X10*3/uL Abs Immat Gran (auto) (0.00-0.03) X10*3/uL Absolute Neuts (auto) (2.0-8.3) X10*3/uL Absolute Nucleated RBC (0.0-0.012) X10*3/uL Nucleated RBC % (auto) (0.0-0.2) /100WBC PT (9.9-13.0) SEC INR (0.9-1.1) APTT (24.1-38.0) SEC Sodium (135-145) mmol/L Potassium (3.3-5.1) mmol/L Chloride (96-108) mmol/L Carbon Dioxide (22-29) mmol/L Anion Gap (12-20) BUN (9-16) mg/dL Creatinine (0.5-1.4) mg/dL Estim Creat Clear Calc Estimated GFR Random Glucose (60-115) mg/dL Lactic Acid 2.1 H* (0.5-2.0) mmol/L Lactic Acid Fup @ 2Hr 1.5 (0.5-2.0) mmol/L Calcium (8.4-10.2) mg/dL Total Bilirubin (0.0-1.0) mg/dL AST (5-37) U/L ALT (0-40) U/L Alkaline Phosphatase (39-117) U/L Total Protein (6.5-8.0) g/dL Albumin (3.5-5.0) g/dL Discharge Plan Discharge Clinical Impression: Incarcerated inguinal hernia Patient Disposition: Admitted As Inpatient [facility] [place] Past Medical History Medical History Cervical spine degeneration GERD (gastroesophageal reflux disease) Hearing loss HTN (hypertension) Hyperglycemia Normal colonoscopy Vertigo Surgical History H/O cervical spine surgery Hx of cholecystectomy Social History Social History 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
[2021-05-21] MEDS: ondansetron HCL 4 MG/2 ML VIAL IVPUSH (11:58)
[2021-05-21] MEDS: HYDROmorphone HCl 0.5 MG/0.5 ML SYRINGE IVPUSH (11:59)
[2021-05-21 12:02] LABS: MANUAL DIFF FLAG NO
[2021-05-21 12:13] LABS: Basophils Percent Auto 0.2 % (0-2); Eosinophils Percent Auto 0.1 % (0-4); Hematocrit 41.5 % (42-52); Hemoglobin 14.4 g/dl (14.0-18.0); Imm Gran Abs Auto 0.06 X10*3/uL (0.00-0.03); Imm Gran Pct Auto 0.4 % (0.0-0.4); Lymphocytes Absolute Auto 0.8 X10*3/uL (1.2-4.9); Lymphocytes Percent Auto 4.9 % (20-40); Mean Corpuscular HGB Conc 34.7 g/dl (31.0-36.0); Mean Corpuscular Hemoglobin 30.8 pg (27.0-33.0); Mean Corpuscular Volume 88.7 fL (80-98); Mean Platelet Volume 9.6 fL (9.4-12.4); Monocytes Absolute Auto 0.9 X10*3/uL (0.1-1.2); Monocytes Percent Auto 5.3 % (2-11); Neutrophils Absolute Auto 14.4 X10*3/uL (2.0-8.3); Neutrophils Percent Auto 89.1 % (45-73); Platelet Count 297 X10*3/uL (160-400); Red Blood Count 4.68 X10*6/uL (4.60-5.80); Red Cell Distribution Width 12.5 % (11.0-16.0); White Blood Count 16.1 X10*3/uL (4.8-10.8)
[2021-05-21 12:16] LABS: Lactic Acid 2.1 mmol/L (0.5-2.0)
[2021-05-21 12:19] LABS: Alanine Aminotransferase 13 U/L (0-40); Albumin Level 4.3 g/dL (3.5-5.0); Alkaline Phosphatase 36 U/L (39-117); Anion Gap 15 (12-20); Aspartate Amino Transferase 16 U/L (5-37); Bilirubin Total 0.8 mg/dL (0.0-1.0); Blood Urea Nitrogen 10 mg/dL (9-16); Calcium 9.4 mg/dL (8.4-10.2); Carbon Dioxide 21 mmol/L (22-29); Chloride 109 mmol/L (96-108); Creatinine Clr Calc Pharmacy 75.8; Estimated Glomerular Filt Rate > 60; Glucose Random 131 mg/dL (60-115); INTERNATIONAL NORM RATIO 1.1 (0.9-1.1); Potassium 3.8 mmol/L (3.3-5.1); Prothrombin Time 12.4 SEC (9.9-13.0); Sodium 141 mmol/L (135-145); Total Protein 6.8 g/dL (6.5-8.0)
[2021-05-21 12:21] LABS: Partial Thromboplastin Time 28.4 SEC (24.1-38.0)
[2021-05-21 14:00] LABS: Reflex Lactate? Lactic Acid Added
[2021-05-21 14:36] LABS: ~Lactic Acid-LAB USE ONLY 1.5 mmol/L (0.5-2.0)
[2021-05-21] MEDS: iohexoL 350 MG/ML 100 ML INFUS..BTL IV (15:21)
[2021-05-21] MEDS: Ketorolac Tromethamine 15 MG/ML VIAL 30 MG IVPUSH (16:10)
[2021-05-21] MEDS: HYDROmorphone HCl 1 MG/ML SYRINGE IVPUSH (16:10)
[2021-05-21 17:47] LABS: COVID-19 Test Negative (Negative)
--- NOTE | 2021-05-21 17:54 | P.HPGS_ITS ---
History of Present Illness History of Present Illness Date of Service: 05/21/21 Chief complaint: hernia Narrative: Hay Canas is a 65 year old male presented to the emergency department today for evaluation of a painful, swollen recurrent left inguinal hernia. He has a history of laparoscopic repair of a left inguinal hernia done around 2004. He has been aware that the hernia recurred for several years. He has noticed intermittent swelling but never had pain associated with it until the last couple of days when he noticed increased swelling and pain. The pain became more severe today. He was able to eat breakfast but had some nausea and 1 episode of vomiting. He did have a small bowel movement today. He does not report fever or chills. CT scan of the abdomen and pelvis was obtained in the emergency department and demonstrated evidence of prior left inguinal hernia repair with recurrence. There was evidence of entrapment of a loop of the proximal sigmoid colon within the hernia and some free fluid was noted within the hernia sac as well. Concern for strangulation was raised. White blood count is elevated at 16.1. Lactic acid level was elevated at 2.1 on presentation but has declined to 1.5. Review of Systems Constitutional: Constitutional: Denies chills, Denies fever(s) and Reports weight loss (Intentional) ENT: Reports vertigo, Reports dizziness and Reports neck pain (Cervical arthritis) Cardiovascular: Cardiovascular: Denies chest pain, Denies leg edema and Denies dyspnea Respiratory: Respiratory: Denies cough, Denies dyspnea and Denies wheezing Gastrointestinal: Gastrointestinal: Reports as per HPI Genitourinary: Genitourinary: Reports dysuria Musculoskeletal: Musculoskeletal: Reports back pain, Reports arthralgias (Shoulders) and Reports neck pain (Cervical arthritis) Neurologic: Reports vertigo and Reports dizziness Hematologic/Lymphatic: Hematologic/Lymphatic: Denies easy bleeding and Denies easy bruising Allergic/Immunologic: Allergic/Immunologic: Denies wheezing PMFSH Past Medical History Medical History Cervical spine degeneration GERD (gastroesophageal reflux disease) Hearing loss HTN (hypertension) Hyperglycemia Normal colonoscopy Vertigo Surgical History Surgical History (Updated 05/21/21 @ 18:00 by Elvi Levin MD) H/O cervical spine surgery History of left inguinal hernia repair Hx of cholecystectomy Social History Social History 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, 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 Housing: House Alcohol intake: never Patient Tobacco Use Status: Never used Tobacco e-Cigarette/Vaping Use: Never Used Second Hand Smoke Exposure: No Substance Use Type: Marijuana Advance Directives: No Advance Directives Information Provided: No Current occupational status: retired Current occupational exposures/hazards: No Meds Allergies Allergy/AdvReac Type Severity Reaction Status Date / Time Penicillins [PENICILLINS] Allergy Unknown RASH Verified 02/27/21 12:30 Physical Exam Vital Signs: Vital Signs: Last Vital Signs Temp 97.6 F 05/21/21 12:00 Pulse 59 05/21/21 16:08 Resp 16 05/21/21 12:00 BP 128/54 L 05/21/21 16:08 Pulse Ox 100 05/21/21 16:08 Body Mass Index 20.5 Const: General: cooperative, no acute distress, alert and anxious (Mildly) Orientation/consciousness: patient oriented x3 HENMT: Head: Yes normocephalic and Yes atraumatic Neck: Neck: Yes trachea midline and No anterior neck swelling Carotids: normal carotid upstroke Resp: Effort & Inspection: normal respiratory effort Auscultation: clear to auscultation bilaterally Cardio: Rate: regular rate Rhythm: regular rhythm GI: Other: Nondistended, active bowel sounds, tender left mid abdomen and left lower quadrant, incarcerated left inguinal hernia without overlying erythema Neuro: General: patient oriented x3 Extrem: General: Yes normal to inspection Results Results Labs: Short CBC 05/21/21 Range/Units 11:58 WBC 16.1 H (4.8-10.8) X10*3/uL Hgb 14.4 (14.0-18.0) g/dl Hct 41.5 L (42-52) % Plt Count 297 D (160-400) X10*3/uL BMP 05/21/21 11:58 Sodium 141 Potassium 3.8 Chloride 109 H Carbon Dioxide 21 L BUN 10 Creatinine 0.83 Calcium 9.4 Liver Function 05/21/21 Range/Units 11:58 Total Bilirubin 0.8 (0.0-1.0) mg/dL AST 16 (5-37) U/L ALT 13 (0-40) U/L Alkaline Phosphatase 36 L (39-117) U/L Albumin 4.3 (3.5-5.0) g/dL Assessment and Plan (1) Incarcerated inguinal hernia: Status: Acute 65-year-old male with an incarcerated recurrent left inguinal hernia, previously repaired laparoscopically. CT scan is suggestive of possible strangulation. Repair of incarcerated left inguinal hernia is planned, open approach, with a bowel resection if needed and possible ostomy. We discussed the risks of the procedure including but not limited to infection, bleeding, DVT and PE, injury to adjacent structures including nerves and bowel, hernia recurrence. We discussed that if an ostomy is needed, it would be reversible. He agrees to proceed. Surgery is scheduled for early this evening. Quality Stroke Does the patient have a stroke diagnosis?: No VTE Prior VTE?: No VTE Risk Level:: Surgical - high VTE Device Contraindication: N/A - Device Ordered VTE Drug Contraindication: Treatment Not Indicated (Begin postop) Procedures Date of Service Date of Service: 05/21/21
--- NOTE | 2021-05-21 19:17 | HO.ANESPROP2 ---
[facility] Active Problems Active Problems: All Active Problems (Updated 05/21/21 @ 17:36 by ANA MARIA Owens) Incarcerated inguinal hernia (Acute) Hearing loss (Acute) Vertigo (Acute) Hyperglycemia (Acute) Normal colonoscopy (Acute) H/O cervical spine surgery (Acute) Hx of cholecystectomy (Acute) GERD (gastroesophageal reflux disease) (Acute) HTN (hypertension) (Acute) Cervical spine degeneration (Acute) Past Medical History Medical History Cervical spine degeneration GERD (gastroesophageal reflux disease) Hearing loss HTN (hypertension) Hyperglycemia Normal colonoscopy Vertigo Functional capacity: independent ambulation Family History Family history of problems with anesthesia: No Surgical History Surgical History (Updated 05/21/21 @ 18:00 by Elvi Levin MD) H/O cervical spine surgery History of left inguinal hernia repair Hx of cholecystectomy History of Problems with Anesthesia: No Social History Social History 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, 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 Housing: House Alcohol intake: never Patient Tobacco Use Status: Never used Tobacco e-Cigarette/Vaping Use: Never Used Second Hand Smoke Exposure: No Substance Use Type: Marijuana Advance Directives: No Advance Directives Information Provided: No Current occupational status: retired Current occupational exposures/hazards: No Meds Allergies Allergy/AdvReac Type Severity Reaction Status Date / Time Penicillins [PENICILLINS] Allergy Unknown RASH Verified 02/27/21 12:30 Exam Exam Date and Time: May 21, [id number] Height,Weight and Vital Signs: Height 5 ft 8 in Weight 61.235 kg Last Vital Signs Temp 97.6 F 05/21/21 12:00 Pulse 59 05/21/21 16:08 Resp 16 05/21/21 12:00 BP 128/54 L 05/21/21 16:08 Pulse Ox 100 05/21/21 16:08 Pertinent Lab Results Pertinent Lab Results: Laboratory Tests 05/21/21 05/21/21 05/21/21 11:58 11:58 11:58 WBC 16.1 H RBC 4.68 Hgb 14.4 Hct 41.5 L MCV 88.7 MCH 30.8 MCHC 34.7 RDW 12.5 Plt Count 297 D MPV 9.6 Immature Gran % (Auto) 0.4 Neut % (Auto) 89.1 H Lymph % (Auto) 4.9 L [place] % (Auto) 5.3 Eos % (Auto) 0.1 Baso % (Auto) 0.2 Lymph # (Auto) 0.8 L [place] # (Auto) 0.9 Eos # (Auto) 0.0 Baso # (Auto) 0.0 Abs Immat Gran (auto) 0.06 H Absolute Neuts (auto) 14.4 H Absolute Nucleated RBC 0.000 Nucleated RBC % (auto) 0.0 PT 12.4 INR 1.1 APTT 28.4 Sodium 141 Potassium 3.8 Chloride 109 H Carbon Dioxide 21 L Anion Gap 15 BUN 10 Creatinine 0.83 Estim Creat Clear Calc 75.8 Estimated GFR > 60 Random Glucose 131 H Lactic Acid Lactic Acid Fup @ 2Hr Calcium 9.4 Total Bilirubin 0.8 AST 16 ALT 13 Alkaline Phosphatase 36 L Total Protein 6.8 Albumin 4.3 COVID-19 (GASPER) [employer] Blood Type Antibody Screen 05/21/21 05/21/21 05/21/21 11:58 14:18 17:26 WBC RBC Hgb Hct MCV MCH MCHC RDW Plt Count MPV Immature Gran % (Auto) Neut % (Auto) Lymph % (Auto) [place] % (Auto) Eos % (Auto) Baso % (Auto) Lymph # (Auto) Grimes # (Auto) Eos # (Auto) Baso # (Auto) Abs Immat Gran (auto) Absolute Neuts (auto) Absolute Nucleated RBC Nucleated RBC % (auto) PT INR APTT Sodium Potassium Chloride Carbon Dioxide Anion Gap BUN Creatinine Estim Creat Clear Calc Estimated GFR Random Glucose Lactic Acid 2.1 H* Lactic Acid Fup @ 2Hr 1.5 Calcium Total Bilirubin AST ALT Alkaline Phosphatase Total Protein Albumin COVID-19 (GASPER) Negative [employer] See Note Blood Type Antibody Screen 05/21/21 17:26 WBC RBC Hgb Hct MCV MCH MCHC RDW Plt Count MPV Immature Gran % (Auto) Neut % (Auto) Lymph % (Auto) Grimes % (Auto) Eos % (Auto) Baso % (Auto) Lymph # (Auto) [place]imes # (Auto) Eos # (Auto) Baso # (Auto) Abs Immat Gran (auto) Absolute Neuts (auto) Absolute Nucleated RBC Nucleated RBC % (auto) PT INR APTT Sodium Potassium Chloride Carbon Dioxide Anion Gap BUN Creatinine Estim Creat Clear Calc Estimated GFR Random Glucose Lactic Acid Lactic Acid Fup @ 2Hr Calcium Total Bilirubin AST ALT Alkaline Phosphatase Total Protein Albumin COVID-19 (GASPER) COVID-19 Clin Com Blood Type A Positive Antibody Screen NEGATIVE Airway Mallampati Class: II TM Dist: >3cm Neck ROM: Full Heart: RRR Lungs: CTA Assessment and Plan Final Anesthetic Review Family History of Problems with Anesthesia: No History of Problems with Anesthesia: No
--- NOTE | 2021-05-21 20:21 | P.BOP_ITS ---
Brief Operative Note Date of Service: 05/21/21 Pre-op diagnosis: Incarcerated recurrent left inguinal hernia Post-op diagnosis: same Procedure: Repair of incarcerated recurrent left inguinal hernia with Prolene mesh Implants: Prolene mesh Surgeon: Elvi Levin MD Anesthesia: GETA Was an Primary Education Professor used for this Procedure?: No Estimated blood loss (mL): 10 Pathology: other (Hernia sac and contents) Condition: stable Disposition: PACU
--- NOTE | 2021-05-21 20:24 | W.PM.OPN ---
Operative Note Operative Note Date of Service: 05/21/21 Narrative: Preoperative diagnosis: Incarcerated recurrent left inguinal hernia Postoperative diagnosis: Same Procedure: Repair of incarcerated recurrent left inguinal hernia with Prolene mesh Continuous Still Operator: None Anesthesia: General endotracheal and local infiltration Estimated blood loss: 10 cc Specimen: Hernia sac and contents Findings: The hernia contained incarcerated loop of small bowel that appeared mildly engorged and inflamed but viable. A small amount of omentum was also present in the hernia sac. Indications: This is a 65-year-old gentleman with a history of laparoscopic left inguinal hernia repair done in 2004 who has a several year history of known recurrence. Over the past couple of days, he has had a persistent mass and increasing pain in the left inguinal area. CT scan in the emergency room today revealed a recurrent left inguinal hernia containing an incarcerated and possibly strangulated loop of bowel. Procedure in detail: With the patient in the supine position after induction of adequate general anesthesia, the lower abdominal wall and inguinal areas were prepped with ChloraPrep and were draped sterilely. Time-out procedure was performed. The incision line was marked in the left inguinal area overlying the hernia. Skin and subcutaneous tissues were infiltrated with local anesthetic. An approximately 10 cm incision was made and was carried through the subcutaneous tissues it to the level of the external oblique fascia using the cautery. There was no significant bleeding. Additional infiltration with local anesthetic was carried out to tissues beneath the external oblique fascia. The fascia was then split in line with its fibers through the external ring and did hemostats were placed on the medial and lateral leaflets of the fascia. A Bookwalter retractor was positioned. Two nerve branches were identified, 1 running with the cord structures and the other running medial to the cord and hernia sac. The hernia sac was dissected free from the cord structures and a [place] drain was placed around the cord. The sac was then opened distally. A small amount of fluid was present and was suctioned out. Some mildly inflamed omentum was present and and inflamed but viable appearing loop of small bowel was identified within the proximal sac. It could not be mobilized initially. The internal ring was opened proximally for a distance of about 3 mm by you elevating the cephalad tissues of the internal ring using a right angle clamp and incising the tissues with the cautery taking care to avoid nerve structures. Once this was done, the small bowel loop was more mobile. It appeared viable. The wound was copiously irrigated with saline solution and was inspected for bleeding. None was seen. The small bowel loop was returned through the hernia defect into the abdominal cavity. The wound was again irrigated with warm saline solution. The hernia sac was closed at the level of the internal ring using a suture of 2 0 Polysorb. The redundant sac was excised. Cut edges were inspected for bleeding. None was seen. The proximal portion of the sac was then allowed to retract through the internal ring. Prior to closing the sac, the omentum and the lipomatous tissue within the sac was divided between right angle clamps and ligated with 3-0 Polysorb ties. The internal ring was reapproximated cephalad with a single suture of 2 0 Polysorb. The wound was again irrigated with saline solution and was inspected for bleeding. None was seen. A piece of Prolene mesh was trimmed to lie within the floor of the inguinal canal. It was sutured in place to the pubic tubercle using an interrupted suture of 2 0 Polysorb. It was then sutured to the shelving edge of Poupart's ligament using interrupted sutures of 2-0 Polysorb. Medially, it was sutured to the internal oblique using interrupted sutures of 2 0 Polysorb taking care to avoid the nerve. Cephalad, it was split to allow for egress of the cord structures and was reattached to itself proximally. The proximal edges replaced beneath the external oblique fascia. The external oblique fascia was then reapproximated in a running fashion using 2-0 Polysorb. Subcutaneous tissues were irrigated with saline solution and were reapproximated with interrupted sutures of 3 0 Polysorb and skin was closed using a running subcuticular suture of 4-0 Polysorb. Steri-Strips and dry sterile dressings were applied. Sponge and instrument counts were correct. He tolerated the procedure well and was transported to the recovery room in stable condition. There were no immediate complications.
[2021-05-21] MEDS: Lactated Ringers 1,000 ML 80 ML IVCONT (22:26)
[2021-05-21] MEDS: Acetaminophen 325 MG TABLET 650 MG PO (22:26)
[2021-05-21] MEDS: Docusate Sodium 100 MG CAPSULE PO (22:27)
[2021-05-22 04:00] VITALS: BP 111/58; PULSE 62; RESP 18; TEMP 36.4; O2SAT 98
[2021-05-22] MEDS: Acetaminophen 325 MG TABLET 650 MG PO ×2 (04:39→09:21)
[2021-05-22] MEDS: Omeprazole 20 MG CAPSULE.DR PO (04:39)
[2021-05-22] MEDS: ceFAZolin Sodium/Dextrose,Iso 2 GM/50 ML PIGGYBACK IV (04:39)
[2021-05-22 06:19] LABS: Hematocrit 39.5 % (42-52); Hemoglobin 13.7 g/dl (14.0-18.0); Mean Corpuscular HGB Conc 34.7 g/dl (31.0-36.0); Mean Corpuscular Hemoglobin 31.1 pg (27.0-33.0); Mean Corpuscular Volume 89.8 fL (80-98); Mean Platelet Volume 9.2 fL (9.4-12.4); Platelet Count 257 X10*3/uL (160-400); Red Cell Distribution Width 12.4 % (11.0-16.0); White Blood Count 13.6 X10*3/uL (4.8-10.8)
[2021-05-22 06:29] LABS: Anion Gap 13 (12-20); Blood Urea Nitrogen 11 mg/dL (9-16); Carbon Dioxide 22 mmol/L (22-29); Chloride 109 mmol/L (96-108); Creatinine Clr Calc Pharmacy 70.7; Estimated Glomerular Filt Rate > 60; Glucose Fasting 119 mg/dL (60-99); Potassium 4.3 mmol/L (3.3-5.1); Sodium 140 mmol/L (135-145)
[2021-05-22 07:18] VITALS: BP 116/57; PULSE 55; RESP 16; TEMP 36.7; O2SAT 100
--- NOTE | 2021-05-22 08:02 | P.PNGS_ITS ---
Subjective Subjective Date of Service: 05/22/21 Interval history: Feels much better Says pain has improved significantly Tolerating p.o. Physical Exam Vital Signs: Vital Signs: Last Vital Signs Temp 98.1 F 05/22/21 07:18 Pulse 55 05/22/21 07:18 Resp 16 05/22/21 07:18 BP 116/57 L 05/22/21 07:18 Pulse Ox 100 05/22/21 07:18 Body Mass Index 20.5 Const: Other: Chemistry 05/21/21 05/22/21 11:58 05:59 Sodium 141 140 Potassium 3.8 4.3 Carbon Dioxide 21 L 22 BUN 10 11 Creatinine 0.83 0.89 Calcium 9.4 9.0 Hematology 05/21/21 05/22/21 11:58 05:59 WBC 16.1 H 13.6 H Hgb 14.4 13.7 L Plt Count 297 D 257 General: comfortable and no acute distress Resp: Effort & Inspection: normal respiratory effort Cardio: Rate: regular rate GI: Other: Dressings dry, no signs of recurrence, repair intact Palpation (GI): Soft to palpation, not firm and no guarding Procedures Date of Service Date of Service: 05/22/21 Progress Note: A&P Assessment and plan (1) Incarcerated inguinal hernia: Status: Acute Assessment and Plan: Status post repair Looks well Abdomen soft Repair intact Good pain control He wants to go home later on today Will re-evaluate and possibly discharge Fall Risk Details Current Medications: Current Medications Acetaminophen (Acetaminophen 325 Mg Tablet) 650 mg PO Q6H [facility] Last Admin: 05/22/21 04:39 Dose: 650 mg Documented by: Docusate Sodium (Docusate Sodium 100 Mg Capsule) 100 mg PO BID [facility] Last Admin: 05/21/21 22:27 Dose: 100 mg Documented by: Lactated Ringer's (Lr) 1,000 mls @ 80 mls/hr IVCONT .[id number] [facility] Last Admin: 05/21/21 22:26 Dose: 80 mls/hr Documented by: Meclizine HCl (Meclizine Hcl 25 Mg Tablet) 25 mg PO Q8H PRN PRN Reason: Vertigo Morphine Sulfate (Morphine Sulfate 4 Mg/Ml Cartridge) 4 mg IVPUSH Q3H PRN; Protocol PRN Reason: Pain, severe Omeprazole (Omeprazole 20 Mg Capsule.) 20 mg PO DAILY@0630 [facility] Last Admin: 05/22/21 04:39 Dose: 20 mg Documented by: Ondansetron HCl (Ondansetron Hcl 4 Mg/2 Ml Vial) 4 mg IVPUSH Q8H PRN PRN Reason: Nausea Oxycodone HCl (Oxycodone Hcl Immed Release 5 Mg Tablet) 5 mg PO Q4H PRN PRN Reason: Pain, Moderate (Pain Scale 4-6 Time Spent With Patient Time: Total time spent is greater than 50% in coordination of care (as documented) at patient's floor/unit and/or counseling patient: Time with patient: 15 - 24 minutes Quality Stroke Does the patient have a stroke diagnosis?: No VTE Prior VTE?: No VTE Risk Level:: Surgical - high VTE Device Contraindication: N/A - Device Ordered VTE Drug Contraindication: Treatment Not Indicated (Begin postop)
[2021-05-22] MEDS: Docusate Sodium 100 MG CAPSULE PO (09:21)
[2021-05-22 10:20] VITALS: BMI 20.5
[2021-05-22 11:47] VITALS: BP 118/56; PULSE 59; RESP 18; TEMP 36.9; O2SAT 100
--- NOTE | 2021-05-22 13:09 | P.DS_ITS ---
DS: Providers Provider Date of Service: 05/22/21 Date of admission: 05/21/21 17:13 Primary care physician: Lore Bishop MD Attending physician on admission: Elvi Levin Attending physician on discharge: Daren Rodriguez DS: Diagnosis Discharge Diagnosis (1) Incarcerated inguinal hernia: Status: Acute DS: Summary Hospital Course Hospital Course: BRIEF HPI: Hay Canas is a 65 year old male who presented to the emergency department for evaluation of a painful, swollen recurrent left inguinal hernia.? He has a history of laparoscopic repair of a left inguinal hernia done around 2004. He has been aware that the hernia recurred for several years.? He has noticed intermittent swelling but never had pain associated with it until the last couple of days when he noticed increased swelling and pain.? The pain lindsay me more severe today.? He was able to eat breakfast but had some nausea and 1 episode of vomiting.? He did have a small bowel movement today.? He does not report fever or chills. CT scan of the abdomen and pelvis was obtained in the emergency department and demonstrated evidence of prior left inguinal hernia repair with recurrence.? There was evidence of entrapment of a loop of the proximal sigmoid colon within the hernia and some free fluid was noted within the hernia sac as well.? Concern for strangulation was raised.? White blood count is elevated at 16.1.? Lactic acid level was elevated at 2.1 on presentation but has declined to 1.5.? HOSPITAL COURSE: The patient was admitted to the surgical service. Repair of incarcerated left inguinal hernia was planned, open approach, with a bowel resection if needed and possible ostomy.?He agreed to proceed. He was added onto the OR schedule for that day. On 05/21/21, repair of incarcerated recurrent left inguinal hernia with Prolene mesh was performed by Dr. Levin without complication. The hernia contained incarcerated loop of small bowel that appeared mildly engorged and inflamed but viable and a small amount of omentum was also present in the hernia sac. The patient tolerated the procedure well and was admitted to the medical/surgical floor for observation. The patient had an uncomplicated post operative and recovery course. On POD#1, he felt well. He had no real pain. He was tolerating liquids and felt hungry. He was passing flatus. His abdomen was benign with clean dressing. He was advanced to a solid diet and was ambulated. He was reassessed later in the day and felt well, was tolerating a solid diet and comfortable OOB. He felt ready for discharge. He was discharged to home on 05/22/21 in stable condition. He is to follow up with Dr. Rodriguez in office in 2 weeks. Status at Discharge Functional status at discharge: independent ambulation Overall status at discharge: patient is progressing back to baseline Time Spent with Patient Time attestation: Total time spent providing and/or coordinating discharge services: Discharge coordination time: Less than 30 minutes Quality: Stroke Does the patient have a stroke diagnosis?: No Physical Exam Vital Signs: Vital Signs: Last Vital Signs Temp 98.4 F 05/22/21 11:47 Pulse 59 05/22/21 11:47 Resp 18 05/22/21 11:47 BP 118/56 L 05/22/21 11:47 Pulse Ox 100 05/22/21 11:47 Body Mass Index 20.5 Const: General: comfortable, no acute distress and alert Orientation/consciousness: patient oriented x3 GI: Inspection: No distended and Yes incision (dressing c/d/i) Palpation (GI): Soft to palpation, Tenderness to palpation present (GI) (very mild tenderness at incision site), no guarding and not rigid Skin: General skin exam: no rashes or lesions noted Neuro: General: patient oriented x3 Extrem: General: Yes no clubbing, cyanosis or edema DS: Data Data Completed and Pending Pending studies at discharge: Pending at discharge 05/21/21 19:50 Surgical [PTH] Routine Labs on day of discharge: Laboratory Results - last 24 hr 05/21/21 05/21/21 05/21/21 14:18 17:26 17:26 WBC RBC Hgb Hct MCV MCH MCHC RDW Plt Count MPV Absolute Nucleated RBC Nucleated RBC % (auto) Sodium Potassium Chloride Carbon Dioxide Anion Gap BUN Creatinine Estim Creat Clear Calc Estimated GFR Fasting Glucose Lactic Acid Fup @ 2Hr 1.5 Calcium COVID-19 ([facility]) Negative COVID-19 Clin Com See Note Blood Type A Positive Antibody Screen NEGATIVE 05/22/21 05/22/21 05:59 05:59 WBC 13.6 H RBC 4.40 L Hgb 13.7 L Hct 39.5 L MCV 89.8 MCH 31.1 MCHC 34.7 RDW 12.4 Plt Count 257 MPV 9.2 L Absolute Nucleated RBC 0.000 Nucleated RBC % (auto) 0.0 Sodium 140 Potassium 4.3 Chloride 109 H Carbon Dioxide 22 Anion Gap 13 BUN 11 Creatinine 0.89 Estim Creat Clear Calc 70.7 Estimated GFR > 60 Fasting Glucose 119 H Lactic Acid Fup @ 2Hr Calcium 9.0 COVID-19 ([facility]) COVID-19 Clin Com Blood Type Antibody Screen Discharge Plan Discharge Patient Disposition: Home, Self-Care Discharge Diagnosis: left inguinal hernia s/p repair of left inguinal hernia with mesh Referrals: Lore Bishop MD [Primary Care Provider] - 1 Week Daren Rodriguez MD [Physician] - 2 Weeks Discharge Medications: New oxycodone 5 mg tablet 5 mg PO Q4H PRN (Reason: pain (scale score 7-10)) Qty: 24 RF: 0 docusate sodium [Colace] 100 mg capsule 100 mg PO BID PRN (Reason: constipation) Qty: 30 RF: 1 Continued omeprazole 20 mg capsule,delayed release(DR/EC) 20 mg PO BID Qty: 180 RF: 3 lidocaine [Lidoderm] 5 % adhesive patch,medicated 1 patch topical DAILY Qty: 15 RF: 0 ondansetron 4 mg tablet,disintegrating 4 mg PO TID PRN (Reason: nausea and vomiting) 5 Days Qty: 10 RF: 0 meclizine 25 mg tablet 25 mg PO TID PRN (Reason: dizziness) Qty: 60 RF: 0 amlodipine 2.5 mg tablet 2.5 mg PO DAILY Qty: 90 RF: 3 Discharge Orders: Discharge Order (Routine); Ordered 05/22/21 Ordered By: Linda Sumner Diet: advance to usual diet Activity on Discharge: No heavy lifting Stand Alone Forms: Patient Portal Discharge page Activity Restrictions/Additional Instructions: If the incision area is tender, you may apply an ice pack for short intervals (No more than 20 minutes on, followed by at least 20 minutes off). Do not apply heat. Do not use creams, lotions, or topical antibiotics unless instructed to do so by your surgeon. These can cause infection or allergic reaction. Remove dressing in 2 days. Ok to shower. You have steri strips (small white cloth strips) covering your incision- these will fall off ~1 week. Follow up in office with Dr. Rodriguez in 2 weeks. ([phone]) Call Your Doctor If: -Your temperature exceeds 101.5? F -You experience excessive pain or swelling -You have an unexpected reaction to medication -You have excessive bleeding -You experience continued vomiting/nausea -Your incision begins to separate -Your incision shows signs of infection such as increased redness, swelling, excessive pain, drainage (light blood or clear fluid is normal) or heat Care Plan Goals: Return to baseline health and gradual return to activity following recovery period. Health Concerns: incarcerated inguinal hernia s/p repair Plan of Treatment: Discharge to home, f/u in office Assessment: Doing well post op
--- NOTE | 2021-05-22 13:11 | MHC.CM.PN ---
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
== END 2021-05-22 14:09 | disposition home or self-care (01) | DRG 352 ==
LOC: HO.ED 17:36 → HO.EDOVER 18:16 → HO.S3 18:31 → HO.SSSA 18:34 → HO.S3 18:47
PROVIDERS: Physician Assistant; Admitting Provider Surgery; Emergency Provider Emergency Medicine; PCP Internal Medicine; Visit Provider Surgery
PROC: 0YU60JZ Supplement Left Inguinal Region with Synthetic Substitute, Open Approach (ICD-10-PCS; principal; 2021-05-21 17:45)
DX: K40.31 Unilateral inguinal hernia, with obstruction, without gangrene, recurrent (principal); K21.9 Gastro-esophageal reflux disease without esophagitis; I10 Essential (primary) hypertension; Z20.822 Contact with and (suspected) exposure to COVID-19; Z79.899 Other long term (current) drug therapy
CPT/HCPCS: 36415; 74177; 80048; 80053; 83605; 85025; 85027; 85610; 85730; 86850; 86900; 86901; 87635; 88302; 96365; 96375; 96376; 99024; 99285; C1781; J0690; J1100; J1170; J1885; J2250; J2405; J3010; Q9967

== ENCOUNTER 2021-05-24 11:01 | Outpatient (REF) | payer MEDICARE, SELFPAY ==
--- NOTE | ~2021-05-24 | MR_ITS ---
EXAMINATION: MR BRAIN WITHOUT AND WITH CONTRAST CLINICAL INFORMATION: 65-year-old with vertigo. Evaluate for possible right-sided vestibular schwannoma. COMPARISON: None TECHNIQUE: Multiplanar, multisequence MRI of the brain was obtained before and after the intravenous administration of 6 mL Gadavist. FINDINGS: IACs: Bilaterally symmetric, no mass lesions or abnormal enhancement. CN VII-VIII complexes normal. AICA LOOPS: None. MEMBRANOUS LABYRINTHS: Normal, no abnormal enhancement. CP ANGLE CISTERNS: No mass lesions or abnormal enhancement. BRAIN VOLUME: Within normal limits. BRAIN AND MENINGES: There are numerous patchy and punctate foci of FLAIR/T2 signal hyperintensity within the subcortical and deeper periventricular white matter of both cerebral hemispheres without restricted diffusion or abnormal enhancement, which are nonspecific findings but likely reflect zones of chronic ischemic microangiopathy. There is no evidence for hemorrhage, hemosiderin staining or abnormal mineral deposition. There are no extra-axial fluid collections, intracranial mass lesion, abnormal enhancement, space-occupying process or mass effect. VESSELS: Signal voids are seen in the visualized major intracranial vessels near the skull base within the limitations of the exam. VENTRICLES AND SUBARACHNOID SPACES: The ventricular system and subarachnoid spaces are within normal limits without hydrocephalus. BONY STRUCTURES: Osseous marrow signal intensity appears within normal limits. MR/MR head/brain wo/w con IMPRESSION: 1. Normal appearance to the auditory apparatus with a normal appearance to the IACs, inner ear structures and CP angle cisterns. No mass lesion or abnormal enhancement. 2. Probable chronic ischemic microangiopathy in the white matter of both cerebral hemispheres.
== END 2021-05-24 11:02 | disposition home or self-care (01) ==
LOC: HO.MRI 11:01
PROVIDERS: Visit Provider Otolaryngology
DX: H81.4 Vertigo of central origin (principal); D33.3 Benign neoplasm of cranial nerves
CPT/HCPCS: 70553; A9585

== ENCOUNTER → 2021-06-01 14:38 | Outpatient (BNVA) | payer MEDICARE, SELFPAY | PROVIDERS: PCP Internal Medicine; Referring Provider Internal Medicine; Visit Provider Surgery | DX: K40.30 Unilateral inguinal hernia, with obstruction, without gangrene, not specified as recurrent (principal); K21.9 Gastro-esophageal reflux disease without esophagitis; I10 Essential (primary) hypertension; R73.9 Hyperglycemia, unspecified; Z88.0 Allergy status to penicillin | CPT/HCPCS: 99212 ==

== ENCOUNTER 2021-07-17 07:43 | Outpatient (REF) | payer MEDICARE, SELFPAY ==
[2021-07-17 12:24] LABS: Alanine Aminotransferase 13 U/L (0-40); Albumin Level 4.2 g/dL (3.5-5.0); Alkaline Phosphatase 36 U/L (39-117); Anion Gap 14 (12-20); Aspartate Amino Transferase 17 U/L (5-37); Bilirubin Total 0.6 mg/dL (0.0-1.0); Blood Urea Nitrogen 14 mg/dL (9-16); Calcium 9.5 mg/dL (8.4-10.2); Carbon Dioxide 25 mmol/L (22-29); Chloride 107 mmol/L (96-108); Cholesterol 140 mg/dL; Estimated Glomerular Filt Rate > 60; Glucose Fasting 97 mg/dL (60-99); HDL Cholesterol 42 mg/dL; LDL Cholesterol Calculated 87 mg/dl; Potassium 4.2 mmol/L (3.3-5.1); Sodium 142 mmol/L (135-145); Total Protein 6.8 g/dL (6.5-8.0); Triglycerides 57 mg/dL
[2021-07-17 12:36] LABS: Estimated Average Glucose 105 mg/dL; Hemoglobin A1c % 5.3 %
== END 2021-07-17 07:44 | disposition home or self-care (01) ==
LOC: HO.HMGCLDS 07:43
PROVIDERS: PCP Internal Medicine; Visit Provider Internal Medicine
DX: Z12.5 Encounter for screening for malignant neoplasm of prostate (principal); I10 Essential (primary) hypertension; R73.9 Hyperglycemia, unspecified
CPT/HCPCS: 36415; 80053; 80061; 83036; 84153

== ENCOUNTER 2022-07-06 06:23 | Outpatient (REF) | payer MEDICARE, SELFPAY ==
[2022-07-06 11:35] LABS: MANUAL DIFF FLAG NO
[2022-07-06 11:43] LABS: Basophils Absolute Auto 0.1 X10*3/uL (0.0-0.2); Basophils Percent Auto 1.5 % (0-2); Eosinophils Absolute Auto 0.1 X10*3/uL (0.0-0.4); Hematocrit 46.5 % (42.0-52.0); Hemoglobin 15.2 g/dl (14.0-18.0); Imm Gran Abs Auto 0.01 X10*3/uL (0.00-0.03); Imm Gran Pct Auto 0.2 % (0.0-0.4); Lymphocytes Absolute Auto 1.7 X10*3/uL (1.2-4.9); Lymphocytes Percent Auto 27.6 % (20-40); Mean Corpuscular HGB Conc 32.7 g/dl (31.0-36.0); Mean Corpuscular Volume 91.7 fL (80.0-98.0); Mean Platelet Volume 10.1 fL (9.4-12.4); Monocytes Absolute Auto 0.8 X10*3/uL (0.1-1.2); Neutrophils Absolute Auto 3.3 x10*3/uL (2.0-8.3); Neutrophils Percent Auto 54.7 % (45-73); Platelet Count 323 X10*3/uL (160-400); Red Blood Count 5.07 X10*6/uL (4.60-5.80); Red Cell Distribution Width 12.8 % (11.0-16.0)
[2022-07-06 13:05] LABS: Alanine Aminotransferase 12 U/L (0-40); Albumin Level 4.3 g/dL (3.5-5.0); Alkaline Phosphatase 29 U/L (39-117); Aspartate Amino Transferase 17 U/L (5-37); Bilirubin Total 0.9 mg/dL (0.0-1.0); Blood Urea Nitrogen 12 mg/dL (9-16); Cholesterol 151 mg/dL; Estimated Glomerular Filt Rate > 60; Glucose Fasting 100 mg/dL (60-99); HDL Cholesterol 44 mg/dL; LDL Cholesterol Calculated 94 mg/dl; PSA,Total (Free>4and<10) 0.42 ng/mL (0.00-4.00); Triglycerides 69 mg/dL
[2022-07-06 13:41] LABS: Anion Gap 17 (12-20); Calcium 9.2 mg/dL (8.4-10.2); Carbon Dioxide 24 mmol/L (22-29); Chloride 107 mmol/L (96-108); Potassium 4.2 mmol/L (3.3-5.1); Sodium 144 mmol/L (135-145)
== END 2022-07-06 06:24 | disposition home or self-care (01) ==
LOC: HO.HMGCLDS 06:23
PROVIDERS: PCP Internal Medicine; Visit Provider Internal Medicine
DX: Z00.00 Encounter for general adult medical examination without abnormal findings (principal); Z12.5 Encounter for screening for malignant neoplasm of prostate; I10 Essential (primary) hypertension; R73.9 Hyperglycemia, unspecified
CPT/HCPCS: 36415; 80053; 80061; 84153; 85025

== ENCOUNTER 2023-01-10 14:01 | Outpatient (AMB) | payer MEDICARE, SELFPAY ==
[2023-01-10 14:16] VITALS: BP 124/66; PULSE 57; O2SAT 99; BMI 22.8
--- NOTE | 2023-01-10 14:16 | MHC.PC.OV ---
Vital Signs 01/10/23 14:16 Height 5 ft 8 in Weight 150 lb BMI 22.8 BP 124/66 Blood Pressure Location Lt brachial Position Sitting Pulse 57 Pulse Source Pulse Oximeter Pulse Oximetry (%) 99 Oxygen Delivery Method Room Air Intake Visit Reasons: Ear issues Intake Note: Pt is here today for a sick visit. Pt c/o bubbly noise in his L ear for couple of months now. Allergies Penicillins [PENICILLINS] Allergy (Unknown, Verified 12/09/23 10:02) RASH Tobacco use date assessed: 01/10/23 Fall risk assessment: No Falls in past year Last assessed Fall Risk: 01/10/23 HPI Ear issues HPI Details Pt c/o sensation of blocked ears and intermittent noise in the left ear for few weeks. Patient denies ear pain fever chills sore throat or change in hearing. Hypertension is controlled on amlodipine [facility] Medical History Annual physical exam Hearing loss Vertigo Hyperglycemia Normal colonoscopy HTN (hypertension) Cervical spine degeneration GERD (gastroesophageal reflux disease) Surgical History History of left inguinal hernia repair H/O cervical spine surgery Hx of cholecystectomy Family History Father No problems noted. 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 1. Little interest or pleasure in doing things: not at all 2. Feeling down, depressed, or hopeless: several days 3. Trouble falling or staying asleep, or sleeping too much: not at all 4. Feeling tired or having little energy: several days 5. Poor appetite or overeating: not at all 6. Feeling bad about yourself - or that you are a failure or have let yourself or your family down: not at all 7. Trouble concentrating on things, such as reading the newspaper or watching television: not at all 8. Moving or speaking so slowly that other people could have noticed. Or the opposite - being so fidgety or restless that you have been moving around a lot more than usual: not at all 9. Thoughts that you would be better off or of hurting yourself in some way: several days Total score: 3 Depression Screening Interpretation: Negative Source: Developed by Drs. Carl Jeffers, Pam Llanos, Pepito Lang and colleagues, with an educational bradly from [employer]. Thrive Questionnaire Date Thrive assessed: 01/10/23 I am a: Patient What is your living situation today?: I have a steady place to live Within the past 12 months, did the food you bought not last and you didn't have the money to get more?: Never true Within the past 12 months, did you worry whether your food would run out before you got money to buy more?: Never true Do you have trouble paying for medicines?: No Do you have trouble getting transportation to medical appointments?: No Do you have trouble paying your heating and electricity bill?: No Do you have trouble taking care of your child, family member or friend?: No Do you have trouble with day-to-day activities such as bathing, preparing meals, shopping, managing finances, etc.?: No Are you currently unemployed and looking for a job?: No Are you interested in more education?: No Please select the resources that you would like help with: None Currently or been in a relationship where the following occur: no concerns reported AUDIT C Alcohol Use Questionnaire (AUDIT-C) 1. How often do you have a drink containing alcohol?: Never 3. How often do you have six or more drinks on one occasion?: Never Total Score: 0 BONITA-7 AMB Questionnaire BONITA-7 Date BONITA - 7 assessed: 01/10/23 Feeling nervous, anxious, or on edge: 0 = Not at all Not being able to stop or control worryin = Not at all Worrying too much about different things: 0 = Not at all Trouble relaxin = Not at all Being so restless that it is hard to sit still: 0 = Not at all Becoming easily annoyed or irritable: 0 = Not at all Feeling afraid as if something awful might happen: 0 = Not at all Total BONITA-7 score (0-4 normal; 5-9 mild; 10-14 moderate; 15-21 severe): 0 Source: Developed by Drs. Carl Jeffers, Pam Llanos, Pepito Lang and colleagues, with an educational bradly from [employer]. Review of Systems Const All systems reviewed & are unremarkable except as noted in HPI and below Reports no additional complaints Eyes Reports no additional complaints ENT Reports no additional complaints Card Reports no additional complaints Resp Reports no additional complaints GI Reports no additional complaints Physical exam (Primary Care) Vital Signs: Last Vital Signs Pulse 57 01/10/23 14:16 BP 124/66 01/10/23 14:16 Pulse Ox 99 01/10/23 14:16 Oxygen Delivery Method Room Air 01/10/23 14:16 BMI result Body Mass Index 22.8 Tobacco/Smoking Status: Tobacco use Status Tobacco use date assessed 01/10/23 01/10/23 14:30 Patient Tobacco Use Status Never used Tobacco 01/10/23 14:30 e-Cigarette/Vaping Use Never Used 01/10/23 14:16 PHQ-9: PHQ-9 Score PHQ-9: Total score 3 01/10/23 14:50 Depression Screening Interpretation: Negative Thrive Assessment: Date of Thrive Assessment Date Thrive assessed 01/10/23 01/10/23 14:41 Currently or been in a relationship where the following occur: no concerns reported Const General: no acute distress HENMT Head: Yes normal to inspection Ears: unable to visualize TM (Cerumen impaction bilaterally) Mouth: Normal oral and palatal mucosa present Throat: Yes posterior oropharynx normal Eyes General: appearance normal, both eyes and all related structures Resp Effort & Inspection: normal respiratory effort Auscultation: clear to auscultation bilaterally Cardio Rhythm: regular rhythm Heart sounds: S1 normal heart sound present and S2 normal heart sound present GI Inspection: Yes normal to inspection Assessment and Plan Assessment & Plan (1) Hearing loss: Code(s): H91.90 - Unspecified hearing loss, unspecified ear Plan: Patient was advised to use Debrox weekly to prevent cerumen buildup (2) HTN (hypertension): Code(s): I10 - Essential (primary) hypertension Plan: Continue current medications Coding Level of Care Code Est Pt Level 3 (48848) Diagnoses Hearing loss H91.90 HTN (hypertension) I10
== END 2023-01-10 15:10 | disposition home or self-care (01) ==
LOC: HO.HMGC 14:02
PROVIDERS: PCP Internal Medicine; Visit Provider Internal Medicine
DX: H91.90 Unspecified hearing loss, unspecified ear (principal); I10 Essential (primary) hypertension
CPT/HCPCS: 99499

== ENCOUNTER 2023-04-09 06:11 | Outpatient (REF) | payer MEDICARE, SELFPAY ==
[2023-04-09 11:20] LABS: MANUAL DIFF FLAG NO
[2023-04-09 11:36] LABS: Basophils Absolute Auto 0.1 X10*3/uL (0.0-0.2); Basophils Percent Auto 1.8 % (0-2); Eosinophils Absolute Auto 0.3 X10*3/uL (0.0-0.4); Eosinophils Percent Auto 5.5 % (0-4); Hematocrit 44.7 % (42.0-52.0); Hemoglobin 14.9 g/dl (14.0-18.0); Imm Gran Abs Auto 0.01 X10*3/uL (0.00-0.03); Imm Gran Pct Auto 0.2 % (0.0-0.4); Lymphocytes Absolute Auto 1.6 X10*3/uL (1.2-4.9); Lymphocytes Percent Auto 27.8 % (20-40); Mean Corpuscular HGB Conc 33.3 g/dl (31.0-36.0); Mean Corpuscular Hemoglobin 30.5 pg (27.0-33.0); Mean Corpuscular Volume 91.4 fL (80.0-98.0); Monocytes Absolute Auto 0.7 X10*3/uL (0.1-1.2); Monocytes Percent Auto 13.2 % (2-11); Neutrophils Absolute Auto 2.9 x10*3/uL (2.0-8.3); Neutrophils Percent Auto 51.5 % (45-73); Platelet Count 318 X10*3/uL (160-400); Red Blood Count 4.89 X10*6/uL (4.60-5.80); Red Cell Distribution Width 12.9 % (11.0-16.0); White Blood Count 5.6 X10*3/uL (4.8-10.8)
[2023-04-09 15:12] LABS: Alanine Aminotransferase 13 U/L (0-40); Albumin Level 4.2 g/dL (3.5-5.0); Alkaline Phosphatase 24 U/L (39-117); Anion Gap 10 (12-20); Aspartate Amino Transferase 20 U/L (5-37); Bilirubin Total 0.7 mg/dL (0.0-1.0); Blood Urea Nitrogen 11 mg/dL (9-16); Calcium 9.4 mg/dL (8.4-10.2); Carbon Dioxide 27 mmol/L (22-29); Chloride 109 mmol/L (96-108); Cholesterol 161 mg/dL (<200); Estimated Glomerular Filt Rate > 60; Glucose Fasting 99 mg/dL (60-99); HDL Cholesterol 47 mg/dL (>40); LDL Cholesterol Calculated 101 mg/dL (<100); Potassium 4.2 mmol/L (3.3-5.1); Sodium 142 mmol/L (135-145); Total Protein 6.9 g/dL (6.5-8.0); Triglycerides 67 mg/dL (<150)
[2023-04-09 15:14] LABS: PSA,Total (Free>4and<10) 0.42 ng/mL (0.00-4.00)
[2023-04-09 15:28] LABS: TSH reflex Free T4 1.56 uIU/mL (0.32-4.0)
== END 2023-04-09 06:12 | disposition home or self-care (01) ==
LOC: HO.HMGCLDS 06:11
PROVIDERS: PCP Internal Medicine; Visit Provider Internal Medicine
DX: Z00.00 Encounter for general adult medical examination without abnormal findings (principal); Z12.5 Encounter for screening for malignant neoplasm of prostate; K21.9 Gastro-esophageal reflux disease without esophagitis; R73.9 Hyperglycemia, unspecified; I10 Essential (primary) hypertension
CPT/HCPCS: 36415; 80053; 80061; 84153; 84443; 85025

== ENCOUNTER 2023-04-17 11:25 | Outpatient (AMB) | payer MEDICARE, SELFPAY ==
[2023-04-17 11:46] VITALS: BP 110/70; PULSE 54; O2SAT 98; BMI 22.0
--- NOTE | 2023-04-17 11:46 | A.OFFPC_ITS ---
Vital Signs 04/17/23 11:46 Height 5 ft 8 in Weight 145 lb BMI 22.0 BP 110/70 Blood Pressure Location Lt brachial Position Sitting Pulse 54 Pulse Source Pulse Oximeter Pulse Oximetry (%) 98 Oxygen Delivery Method Room Air Intake Visit Reasons: 9 month follow up Intake Note: Pt is here today for a follow up visit. Allergies Penicillins [PENICILLINS] Allergy (Unknown, Verified 04/17/23 11:46) RASH Medication List - Last Reconciled 04/17/23 by Lore Bishop MD amlodipine 2.5 mg PO DAILY omeprazole 20 mg PO BID Tobacco use date assessed: 04/17/23 Dental Screening Dental Screen Date: 04/17/23 Did you have a dental visit in the last 12 months?: Yes Did you have a dental problem in the last 6 months where you did not have access to dental care?: No Was dental information given to patient?: Patient has dentist HPI 9 month follow up HPI Details Pt presents for f/u of HTN and GERD, stable on meds. FORMERLY [facility], LATER [facility] Medical History Annual physical exam Hearing loss Vertigo Hyperglycemia Normal colonoscopy HTN (hypertension) Cervical spine degeneration GERD (gastroesophageal reflux disease) Surgical History History of left inguinal hernia repair H/O cervical spine surgery Hx of cholecystectomy Family History Father No problems noted. 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 Carl L. ZeyadPam hernandez, Pepito Lang and colleagues, with an educational bradly from [employer]. Review of Systems Const All systems reviewed & are unremarkable except as noted in HPI and below Reports no additional complaints Eyes Reports no additional complaints ENT Reports no additional complaints Card Reports no additional complaints Resp Reports no additional complaints GI Reports no additional complaints Reports no additional complaints Physical exam (Primary Care) Vital Signs: Last Vital Signs Pulse 49 L 04/17/23 11:46 BP 110/70 04/17/23 11:46 Pulse Ox 98 04/17/23 11:46 Oxygen Delivery Method Room Air 04/17/23 11:46 BMI result Body Mass Index 22.0 Tobacco/Smoking Status: Tobacco use Status Tobacco use date assessed 04/17/23 04/17/23 11:52 Patient Tobacco Use Status Never used Tobacco 04/17/23 11:52 e-Cigarette/Vaping Use Never Used 04/17/23 11:52 Thrive Assessment: Date of Thrive Assessment Date Thrive assessed 01/10/23 04/17/23 11:52 Const General: no acute distress HENMT Face and sinus: Yes normal facial exam Throat: Yes posterior oropharynx normal Eyes General: appearance normal, both eyes and all related structures Neck Neck: Yes no lymphadenopathy and Yes supple Resp Effort & Inspection: normal respiratory effort Auscultation: clear to auscultation bilaterally Cardio Rhythm: regular rhythm Heart sounds: S1 normal heart sound present and S2 normal heart sound present GI Inspection: Yes normal to inspection Palpation (GI): Soft to palpation Percussion: Yes normal to percussion Auscultation: normal bowel sounds Assessment and Plan Assessment & Plan (1) Annual physical exam: Code(s): Z00.00 - Encounter for general adult medical examination without abnormal findings Plan: Well-balanced diet regular physical activity discussed with the patient (2) HTN (hypertension): Code(s): I10 - Essential (primary) hypertension Plan: Continue amlodipine (3) GERD (gastroesophageal reflux disease): Code(s): K21.9 - Gastro-esophageal reflux disease without esophagitis Plan: CONTINUE PPI AND FOLLOW ANTI GERD DIET Medications: Refilled omeprazole 20 mg PO BID 180 caps 3RF amlodipine 2.5 mg PO DAILY 90 tabs 3RF Coding Level of Care Code Est Pt Level 4 (34700) Diagnoses Annual physical exam Z00.00 HTN (hypertension) I10 GERD (gastroesophageal reflux disease) K21.9
== END 2023-04-17 12:44 | disposition home or self-care (01) ==
PROVIDERS: Visit Provider Internal Medicine
DX: Z00.00 Encounter for general adult medical examination without abnormal findings (principal); I10 Essential (primary) hypertension; K21.9 Gastro-esophageal reflux disease without esophagitis
CPT/HCPCS: 99397

== ENCOUNTER 2023-12-09 08:55 | Outpatient (AMB) | payer OTHER, SELFPAY ==
[2023-12-09 09:34] VITALS: BP 110/60; PULSE 89; TEMP 36.3; O2SAT 99; BMI 21.9
--- NOTE | 2023-12-09 09:34 | AM.OFFWIN_ITS ---
Intake Vital Signs 12/09/23 09:34 Height 5 ft 8 in Weight 144 lb BMI 21.9 BP 110/60 Blood Pressure Location Lt brachial Position Sitting Pulse 89 Pulse Source Pulse Oximeter Temp 97.3 F Temp Source Temporal Artery Scan Pulse Oximetry (%) 99 Oxygen Delivery Method Room Air Intake Visit Reasons: Ep stomach pain maybe stomach flu? Intake Note: pt is here today for stomach pain started yesterday Patient Tobacco Use Status: Never used Tobacco Allergies Penicillins [PENICILLINS] Allergy (Unknown, Verified 12/09/23 10:02) RASH Medication List - Last Reconciled 12/09/23 by Lee Galloway MD amlodipine 2.5 mg PO DAILY omeprazole 20 mg PO BID Do you need a note to return to daycare/school/sports/work: No HPI Ep stomach pain maybe stomach flu? HPI Details 68-year-old male presents to the office for a sick visit. Patient is reporting symptoms of nausea, vomiting and diarrhea. It started at 02:00 this morning. Woke patient up from sleep. He lives with a roommate. However he does not share the food. Patient cooks every day. FORMERLY [facility] Medical History Annual physical exam Hearing loss Vertigo Hyperglycemia Normal colonoscopy HTN (hypertension) Cervical spine degeneration GERD (gastroesophageal reflux disease) Surgical History History of left inguinal hernia repair H/O cervical spine surgery Hx of cholecystectomy Family History Father No problems noted. 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 Housing: Other Housing Other:: mobile home Do you presently have visiting nurse or other home services: No Alcohol intake: never Patient Tobacco Use Status: Never used Tobacco e-Cigarette/Vaping Use: Never Used Second Hand Smoke Exposure: No Substance Use Type: Marijuana Current occupational status: retired Current occupational exposures/hazards: No Cognitive needs: No Hearing needs: No Vision needs: No Physical Exam Vital Signs: Last Vital Signs Temp 97.3 F 05/06/24 09:34 Pulse 89 12/09/23 09:34 BP 110/60 12/09/23 09:34 Pulse Ox 99 12/09/23 09:34 Oxygen Delivery Method Room Air 12/09/23 09:34 BMI result Body Mass Index 21.9 Const General: cooperative and healthy appearing Nutritional Appearance: well nourished Orientation/consciousness: patient oriented x3 Limitations: no limitations HEENT Head: Yes normal to inspection Eyes General: appearance normal, both eyes and all related structures Neck Neck: Yes normal visual inspection Chest Chest palpation & inspection: normal palpation of entire chest wall Resp Effort & Inspection: normal respiratory effort Cardio Other: Tachycardia Neuro General: patient oriented x3 Assessment & Plan Assessment & Plan (1) Gastroenteritis: Code(s): K52.9 - Noninfective gastroenteritis and colitis, unspecified Plan: Increase fluid intake. Cipro 250 b.i.d. called in. Blood work ordered. Orders: Orders Basic Metabolic Panel Today K52.9 - Noninfective gastroenteritis and colitis, unspecified Complete Blood Count no Diff Today K52.9 - Noninfective gastroenteritis and colitis, unspecified Liver Panel Today K52.9 - Noninfective gastroenteritis and colitis, unspecified Thyroid Stimulating Hormone Today K52.9 - Noninfective gastroenteritis and colitis, unspecified Erythrocyte Sedimentation Rate Today K52.9 - Noninfective gastroenteritis and colitis, unspecified Medications: New ciprofloxacin HCl 250 mg PO BID 14 tabs 0RF Coding Level of Care Code Est Pt Level 3 (95254) Diagnoses Gastroenteritis K52.9
== END 2023-12-09 10:42 | disposition home or self-care (01) ==
PROVIDERS: PCP Internal Medicine; Visit Provider Internal Medicine
DX: K52.9 Noninfective gastroenteritis and colitis, unspecified (principal)
CPT/HCPCS: 99213

== ENCOUNTER 2023-12-09 11:01 | Outpatient (REF) | payer OTHER, SELFPAY ==
[2023-12-09 13:39] LABS: Hematocrit 47.9 % (42.0-52.0); Hemoglobin 16.3 g/dl (14.0-18.0); Mean Corpuscular Hemoglobin 31.1 pg (27.0-33.0); Mean Corpuscular Volume 91.4 fL (80.0-98.0); Mean Platelet Volume 9.9 fL (9.4-12.4); Platelet Count 336 X10*3/uL (160-400); Red Blood Count 5.24 X10*6/uL (4.60-5.80); Red Cell Distribution Width 12.9 % (11.0-16.0); White Blood Count 18.7 X10*3/uL (4.8-10.8)
[2023-12-09 14:12] LABS: Alanine Aminotransferase 18 U/L (0-40); Albumin Level 4.5 g/dL (3.5-5.0); Alkaline Phosphatase 29 U/L (39-117); Anion Gap 18 (12-20); Aspartate Amino Transferase 19 U/L (5-37); Bilirubin Direct 0.4 mg/dL (0.0-0.5); Bilirubin Total 1.3 mg/dL (0.0-1.0); Blood Urea Nitrogen 16 mg/dL (9-16); Calcium 9.7 mg/dL (8.4-10.2); Carbon Dioxide 22 mmol/L (22-29); Chloride 108 mmol/L (96-108); Estimated Glomerular Filt Rate > 60; Glucose Random 150 mg/dL (60-115); Potassium 3.9 mmol/L (3.3-5.1); Sodium 144 mmol/L (135-145); Thyroid Stimulating Hormone 1.03 uIU/mL (0.32-4.0); Total Protein 7.7 g/dL (6.5-8.0)
[2023-12-09 14:19] LABS: Erythrocyte Sedimentation Rate 1 MM/HR (0-15)
== END 2023-12-09 11:02 | disposition home or self-care (01) ==
LOC: HO.HMGCLDS 11:01
PROVIDERS: PCP Internal Medicine; Visit Provider Internal Medicine
DX: K52.9 Noninfective gastroenteritis and colitis, unspecified (principal)
CPT/HCPCS: 36415; 80048; 80076; 84443; 85027; 85652

== ENCOUNTER 2024-03-23 06:14 | Outpatient (REF) | payer OTHER, SELFPAY ==
[2024-03-23 10:32] LABS: MANUAL DIFF FLAG NO
[2024-03-23 10:39] LABS: Basophils Absolute Auto 0.1 X10*3/uL (0.0-0.2); Basophils Percent Auto 1.5 % (0-2); Eosinophils Absolute Auto 0.1 X10*3/uL (0.0-0.4); Eosinophils Percent Auto 2.3 % (0-4); Hematocrit 44.8 % (42.0-52.0); Hemoglobin 14.9 g/dl (14.0-18.0); Imm Gran Abs Auto 0.02 X10*3/uL (0.00-0.03); Imm Gran Pct Auto 0.3 % (0.0-0.4); Lymphocytes Absolute Auto 1.6 X10*3/uL (1.2-4.9); Lymphocytes Percent Auto 27.2 % (20-40); Mean Corpuscular HGB Conc 33.3 g/dl (31.0-36.0); Mean Corpuscular Hemoglobin 30.4 pg (27.0-33.0); Mean Corpuscular Volume 91.4 fL (80.0-98.0); Mean Platelet Volume 9.7 fL (9.4-12.4); Monocytes Absolute Auto 0.7 X10*3/uL (0.1-1.2); Monocytes Percent Auto 11.9 % (2-11); Neutrophils Absolute Auto 3.4 x10*3/uL (2.0-8.3); Neutrophils Percent Auto 56.8 % (45-73); Platelet Count 437 X10*3/uL (160-400)
[2024-03-23 11:19] LABS: Alanine Aminotransferase 16 U/L (0-40); Albumin Level 4.3 g/dL (3.5-5.0); Alkaline Phosphatase 30 U/L (39-117); Anion Gap 14 (12-20); Aspartate Amino Transferase 20 U/L (5-37); Bilirubin Total 0.9 mg/dL (0.0-1.0); Blood Urea Nitrogen 11 mg/dL (9-16); Calcium 9.5 mg/dL (8.4-10.2); Carbon Dioxide 25 mmol/L (22-29); Chloride 107 mmol/L (96-108); Cholesterol 149 mg/dL (<200); Estimated Glomerular Filt Rate > 60; Glucose Fasting 104 mg/dL (60-99); HDL Cholesterol 37 mg/dL (>40); LDL Cholesterol Calculated 95 mg/dL (<100); Potassium 4.2 mmol/L (3.3-5.1); Sodium 142 mmol/L (135-145); Total Protein 7.4 g/dL (6.5-8.0); Triglycerides 88 mg/dL (<150)
[2024-03-23 11:25] LABS: PSA,Total (Free>4and<10) 0.46 ng/mL (0.00-4.00)
== END 2024-03-23 06:15 | disposition home or self-care (01) ==
LOC: HO.HMGCLDS 06:14
PROVIDERS: PCP Internal Medicine; Visit Provider Internal Medicine
DX: Z00.00 Encounter for general adult medical examination without abnormal findings (principal); R73.9 Hyperglycemia, unspecified; I10 Essential (primary) hypertension; Z12.5 Encounter for screening for malignant neoplasm of prostate
CPT/HCPCS: 36415; 80053; 80061; 84153; 85025

== ENCOUNTER 2024-03-30 10:36 | Outpatient (AMB) | payer OTHER, SELFPAY ==
--- NOTE | 2024-03-30 10:42 | A.OFFPC_ITS ---
Vital Signs 03/30/24 10:59 Height 5 ft 8 in Weight 143 lb BMI 21.7 BP 132/66 Blood Pressure Location Rt brachial Position Sitting Pulse 58 Pulse Source Pulse Oximeter Pulse Oximetry (%) 99 Oxygen Delivery Method Room Air Intake Visit Reasons: Annual Physical Intake Note: Pt is here today for PE. Allergies Penicillins [PENICILLINS] Allergy (Unknown, Verified 03/30/24 10:59) RASH Medication List - Last Reconciled 03/30/24 by Lore Bishop MD amlodipine 2.5 mg PO DAILY omeprazole 20 mg PO BID Tobacco use date assessed: 03/30/24 Fall risk assessment: No Falls in past year Last assessed Fall Risk: 03/30/24 Dental Screening Dental Screen Date: 03/30/24 Did you have a dental visit in the last 12 months?: Yes Did you have a dental problem in the last 6 months where you did not have access to dental care?: No Was dental information given to patient?: Patient has dentist HPI Annual Physical HPI Details Pt presents for PE. [facility] Medical History Annual physical exam Hearing loss Vertigo Hyperglycemia Normal colonoscopy HTN (hypertension) Cervical spine degeneration GERD (gastroesophageal reflux disease) Surgical History History of left inguinal hernia repair H/O cervical spine surgery Hx of cholecystectomy Family History Father No problems noted. 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 1. Little interest or pleasure in doing things: not at all 2. Feeling down, depressed, or hopeless: several days 3. Trouble falling or staying asleep, or sleeping too much: not at all 4. Feeling tired or having little energy: several days 5. Poor appetite or overeating: not at all 6. Feeling bad about yourself - or that you are a failure or have let yourself or your family down: not at all 7. Trouble concentrating on things, such as reading the newspaper or watching television: not at all 8. Moving or speaking so slowly that other people could have noticed. Or the opposite - being so fidgety or restless that you have been moving around a lot more than usual: not at all 9. Thoughts that you would be better off or of hurting yourself in some way: several days Total score: 3 Depression Screening Interpretation: Negative Depression Screening Done: Yes 87475 - PHQ-9 Billing: Yes Source: Developed by Drs. Carl Jeffers, Pam Llanos, Pepito Lang and colleagues, with an educational bradly from [employer]. Thrive Questionnaire Date Thrive assessed: 03/30/24 I am a: Patient What is your living situation today?: I have a steady place to live Within the past 12 months, did the food you bought not last and you didn't have the money to get more?: Never true Within the past 12 months, did you worry whether your food would run out before you got money to buy more?: Never true Do you have trouble paying for medicines?: No Do you have trouble getting transportation to medical appointments?: No Do you have trouble paying your heating and electricity bill?: No Do you have trouble taking care of your child, family member or friend?: No Do you have trouble with day-to-day activities such as bathing, preparing meals, shopping, managing finances, etc.?: No Are you currently unemployed and looking for a job?: No Are you interested in more education?: No Please select the resources that you would like help with: None THRIVE Score: 0 AUDIT C Alcohol Use Questionnaire (AUDIT-C) 1. How often do you have a drink containing alcohol?: Never 3. How often do you have six or more drinks on one occasion?: Never Total Score: 0 BONITA-7 AMB Questionnaire BONITA-7 Date BONITA - 7 assessed: 03/30/24 Feeling nervous, anxious, or on edge: 0 = Not at all Not being able to stop or control worryin = Not at all Worrying too much about different things: 0 = Not at all Trouble relaxin = Not at all Being so restless that it is hard to sit still: 0 = Not at all Becoming easily annoyed or irritable: 0 = Not at all Feeling afraid as if something awful might happen: 0 = Not at all Total BONITA-7 score (0-4 normal; 5-9 mild; 10-14 moderate; 15-21 severe): 0 Source: Developed by Drs. Carl Jeffers, Pam Llanos, Pepito Lang and colleagues, with an educational bradly from [employer]. BONITA-7 Assessment Billing BONITA-7 Assessment Tool: BONITA-7 Assessment 84137 Review of Systems Const All systems reviewed & are unremarkable except as noted in HPI and below Reports no additional complaints Eyes Reports no additional complaints ENT Reports no additional complaints Card Reports no additional complaints Resp Reports no additional complaints GI Reports no additional complaints Reports no additional complaints Physical exam (Primary Care) Vital Signs: Last Vital Signs Pulse 58 03/30/24 10:59 BP 132/66 03/30/24 10:59 Pulse Ox 99 03/30/24 10:59 Oxygen Delivery Method Room Air 03/30/24 10:59 BMI result Body Mass Index 21.7 Tobacco/Smoking Status: Tobacco use Status Tobacco use date assessed 03/30/24 03/30/24 11:01 Patient Tobacco Use Status Never used Tobacco 03/30/24 11:01 e-Cigarette/Vaping Use Never Used 03/30/24 10:42 PHQ-9: PHQ-9 Score PHQ-9: Total score 3 03/30/24 11:08 Depression Screening Interpretation: Negative Thrive Assessment: Date of Thrive Assessment Date Thrive assessed 03/30/24 03/30/24 11:08 Const General: no acute distress HENMT Head: Yes normal to inspection Ears: hearing grossly normal bilaterally Face and sinus: Yes normal facial exam Mouth: Normal oral and palatal mucosa present Throat: Yes posterior oropharynx normal Eyes General: appearance normal, both eyes and all related structures Neck Neck: Yes no lymphadenopathy and Yes supple Resp Effort & Inspection: normal respiratory effort Auscultation: clear to auscultation bilaterally Cardio Rhythm: regular rhythm Heart sounds: S1 normal heart sound present and S2 normal heart sound present GI Inspection: Yes normal to inspection Palpation (GI): Soft to palpation Percussion: Yes normal to percussion Auscultation: normal bowel sounds Assessment and Plan Assessment & Plan (1) Annual physical exam: Code(s): Z00.00 - Encounter for general adult medical examination without abnormal findings Plan: Well-balanced diet regular physical activity discussed with the patient he is due for colonoscopy next year and will follow-up with the GI (2) HTN (hypertension): Code(s): I10 - Essential (primary) hypertension Plan: Continue Amlodipine (3) Normal colonoscopy: Comment: 2014 Orders: Orders Comprehensive [place]. Panel Fast 1 Year I10 - Essential (primary) hypertension, R73.9 - Hyperglycemia, unspecified, Z00.00 - Encounter for general adult medical examination without abnormal findings Complete Blood Count Auto Diff 1 Year I10 - Essential (primary) hypertension, R73.9 - Hyperglycemia, unspecified, Z00.00 - Encounter for general adult medical examination without abnormal findings Lipid Panel 1 Year I10 - Essential (primary) hypertension, R73.9 - Hyperglycemia, unspecified, Z00.00 - Encounter for general adult medical examination without abnormal findings UA w Microscopic Today I10 - Essential (primary) hypertension, Z00.00 - Encounter for general adult medical examination without abnormal findings Medications: Refilled amlodipine 2.5 mg PO DAILY 90 tabs 3RF omeprazole 20 mg PO BID 180 caps 3RF Coding Level of Care Code Est Pt Prev Care >65y(50554) Diagnoses Annual physical exam Z00.00 HTN (hypertension) I10 Normal colonoscopy Additional Codes BONITA-7 Assessment Billing - BONITA-7 Assessment Tool: BONITA-7 Assessment 39723 ([id number])
[2024-03-30 10:59] VITALS: BP 132/66; PULSE 58; O2SAT 99; BMI 21.7
== END 2024-03-30 11:42 | disposition home or self-care (01) ==
PROVIDERS: PCP Internal Medicine; Visit Provider Internal Medicine
DX: Z00.00 Encounter for general adult medical examination without abnormal findings (principal); I10 Essential (primary) hypertension
CPT/HCPCS: 99397

== ENCOUNTER 2024-03-30 11:44 | Outpatient (REF) | payer OTHER, SELFPAY ==
[2024-03-30 13:33] LABS: Appearance Urine Clear; Color Urine Yellow; Glucose Urine UA Negative (Negative); Leukocyte Esterase Urine Negative (Negative); Nitrite Urine Negative (Negative); PH 5.5 (5.0-9.0); Specific Gravity - Urine 1.015 (1.005-1.025); UMIC TRIGGER UA YES; Urine Blood Negative (Negative); Urine Ketones Negative (Negative); Urine Protein 100 (2+) mg/dL (Neg-Trace)
[2024-03-30 13:45] LABS: Bacteria Urine None Seen (None Seen); Hyaline Casts Urine 0-2 /LPF (0-2); RBC Urine 0-2 /HPF (0-2); Squamous Epithelial Cell Urine 0-2 /HPF (0-2); WBC Urine 0-5 /HPF (0-5)
== END 2024-03-30 11:45 | disposition home or self-care (01) ==
LOC: HO.HMGCLDS 11:44
PROVIDERS: PCP Internal Medicine; Visit Provider Internal Medicine
DX: Z00.00 Encounter for general adult medical examination without abnormal findings (principal); I10 Essential (primary) hypertension
CPT/HCPCS: 81001

== ENCOUNTER 2024-04-13 06:00 | Outpatient (REF) | payer OTHER, SELFPAY ==
[2024-04-13 11:06] LABS: Creatinine, 24Hr Urine 1.1 G/Day (1.0-2.0); Creatinine, mg/dL 49.86; Protein 24 Hr Urine < 154 mg/Day (<150); Protein mg/dL < 7 mg/dL; Total Volume 24 Hour Urine 2200 mL
== END 2024-04-13 06:01 | disposition home or self-care (01) ==
LOC: HO.HMGCLNP 06:00
PROVIDERS: PCP Internal Medicine; Visit Provider Internal Medicine
DX: R80.9 Proteinuria, unspecified (principal)
CPT/HCPCS: 84156

== ENCOUNTER 2024-11-13 11:06 | Outpatient (AMB) | payer MEDICARE, SELFPAY ==
--- NOTE | 2024-11-13 11:24 | MHC.PC.OV ---
Vital Signs 11/13/24 11:25 Height 5 ft 8 in Weight 145 lb BMI 22.0 BP 108/74 Blood Pressure Location Rt brachial Position Sitting Pulse 57 Pulse Source Pulse Oximeter Pulse Oximetry (%) 99 Oxygen Delivery Method Room Air Intake Visit Reasons: LT leg concerns, reschedule Intake Note: Pt is here today for a sick visit. Pt c/o L buttock area pain that goes down his L leg. Allergies Penicillins [PENICILLINS] Allergy (Unknown, Verified 11/13/24 11:31) RASH Medication List - Last Reconciled 11/13/24 by Lore Bishop MD amlodipine 2.5 mg PO DAILY omeprazole 20 mg PO BID Tobacco use date assessed: 11/13/24 Fall risk assessment: No Falls in past year Last assessed Fall Risk: 11/13/24 Dental Screening Dental Screen Date: 11/13/24 Did you have a dental visit in the last 12 months?: Yes Did you have a dental problem in the last 6 months where you did not have access to dental care?: No Was dental information given to patient?: Patient has dentist HPI LT leg concerns, reschedule HPI Details Pt c/o pain in the buttock radiating to LLE tingling sensation worse when standing or walking for a while for 3 months, Pt has been going to the gym able to walk 10 minutes on a treadmill without difficulty. Patient denies any weakness in extremities or change in bowel or bladder function. Hypertension is controlled on amlodipine [facility] Medical History Annual physical exam Hearing loss Vertigo Hyperglycemia Normal colonoscopy HTN (hypertension) Cervical spine degeneration GERD (gastroesophageal reflux disease) Surgical History History of left inguinal hernia repair H/O cervical spine surgery Hx of cholecystectomy Family History Father No problems noted. 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 1. Little interest or pleasure in doing things: not at all 2. Feeling down, depressed, or hopeless: several days 3. Trouble falling or staying asleep, or sleeping too much: not at all 4. Feeling tired or having little energy: several days 5. Poor appetite or overeating: not at all 6. Feeling bad about yourself - or that you are a failure or have let yourself or your family down: not at all 7. Trouble concentrating on things, such as reading the newspaper or watching television: not at all 8. Moving or speaking so slowly that other people could have noticed. Or the opposite - being so fidgety or restless that you have been moving around a lot more than usual: not at all 9. Thoughts that you would be better off or of hurting yourself in some way: several days Total score: 3 Depression Screening Interpretation: Negative Depression Screening Done: Yes 71413 - PHQ-9 Billing: Yes Source: Developed by Drs. Carl Jeffers, Pam Llanos, Pepito Lang and colleagues, with an educational bradly from [employer]. Thrive Questionnaire Date Thrive assessed: 11/13/24 I am a: Patient What is your living situation today?: I have a steady place to live Within the past 12 months, did the food you bought not last and you didn't have the money to get more?: Never true Within the past 12 months, did you worry whether your food would run out before you got money to buy more?: Never true Do you have trouble paying for medicines?: No Do you have trouble getting transportation to medical appointments?: No Do you have trouble paying your heating and electricity bill?: No Do you have trouble taking care of your child, family member or friend?: No Do you have trouble with day-to-day activities such as bathing, preparing meals, shopping, managing finances, etc.?: No Are you currently unemployed and looking for a job?: No Are you interested in more education?: No Please select the resources that you would like help with: None THRIVE Score: 0 AUDIT C Alcohol Use Questionnaire (AUDIT-C) 1. How often do you have a drink containing alcohol?: Never 3. How often do you have six or more drinks on one occasion?: Never Total Score: 0 BONITA-7 AMB Questionnaire BONITA-7 Date BONITA - 7 assessed: 11/13/24 Feeling nervous, anxious, or on edge: 0 = Not at all Not being able to stop or control worryin = Not at all Worrying too much about different things: 0 = Not at all Trouble relaxin = Not at all Being so restless that it is hard to sit still: 0 = Not at all Becoming easily annoyed or irritable: 0 = Not at all Feeling afraid as if something awful might happen: 0 = Not at all Total BONITA-7 score (0-4 normal; 5-9 mild; 10-14 moderate; 15-21 severe): 0 Source: Developed by Drs. Carl Jeffers, Pam Llanos, Pepito Lang and colleagues, with an educational bradly from [employer]. BONITA-7 Assessment Billing BONITA-7 Assessment Tool: BONITA-7 Assessment 56581 Review of Systems Const All systems reviewed & are unremarkable except as noted in HPI and below Eyes Reports no additional complaints ENT Reports no additional complaints Card Reports no additional complaints Resp Reports no additional complaints GI Reports no additional complaints Physical exam (Primary Care) Vital Signs: Last Vital Signs Pulse 57 11/13/24 11:25 BP 108/74 11/13/24 11:25 Pulse Ox 99 11/13/24 11:25 Oxygen Delivery Method Room Air 11/13/24 11:25 BMI result Body Mass Index 22.0 Tobacco/Smoking Status: Tobacco use Status Tobacco use date assessed 11/13/24 11/13/24 11:34 Patient Tobacco Use Status Never used Tobacco 11/13/24 11:25 e-Cigarette/Vaping Use Never Used 11/13/24 11:25 PHQ-9: PHQ-9 Score PHQ-9: Total score 3 11/13/24 11:34 Depression Screening Interpretation: Negative Thrive Assessment: Date of Thrive Assessment Date Thrive assessed 11/13/24 11/13/24 11:34 Const General: no acute distress HENMT Head: Yes normal to inspection Resp Effort & Inspection: normal respiratory effort Auscultation: clear to auscultation bilaterally Cardio Rhythm: regular rhythm Heart sounds: S1 normal heart sound present and S2 normal heart sound present Back/Spine/Pelvis Other: No lumbar spinal or paraspinal tenderness, straight leg rising 90 degrees bilaterally. There is reproducible tenderness over left posterior buttock area deep tendon reflexes are 2+ bilaterally motor strength is 5/5 both lower extremities Extrem General: Yes no clubbing, cyanosis or edema Coding Level of Care Code Est Pt Level 3 (36341) Diagnoses Sciatica M54.30 HTN (hypertension) I10 Additional Codes BONITA-7 Assessment Billing - BONITA-7 Assessment Tool: BONITA-7 Assessment 65015 ([id number]) PHQ-9 - 16353 - PHQ-9 Billing: Yes ([id number]) Assessment & Plan Assessment & Plan (1) Sciatica: Code(s): M54.30 - Sciatica, unspecified side Category: Medical Plan: Obtain x-ray of lumbar spine, for piriformis syndrome patient will be referred to physical therapy (2) HTN (hypertension): Code(s): I10 - Essential (primary) hypertension Category: Medical Plan: Continue amlodipine Orders: Orders XR lumbar spine 2-3V Today M54.30 - Sciatica, unspecified side PT Evaluation and Treatment Today M54.30 - Sciatica, unspecified side Medications: Refilled omeprazole 20 mg PO BID 180 caps 3RF amlodipine 2.5 mg PO DAILY 90 tabs 3RF
[2024-11-13 11:25] VITALS: BP 108/74; PULSE 57; O2SAT 99; BMI 22.0
== END 2024-11-13 12:09 | disposition home or self-care (01) ==
LOC: HO.HMCC 11:06
PROVIDERS: PCP Internal Medicine; Visit Provider Internal Medicine
DX: M54.30 Sciatica, unspecified side (principal); I10 Essential (primary) hypertension

== ENCOUNTER 2024-11-13 11:06 | Outpatient (REF) | payer MEDICARE, SELFPAY ==
--- NOTE | ~2024-11-13 | XR_ITS ---
CLINICAL HISTORY: M54.30 - Sciatica, unspecified side 3 views lumbar spine Comparison: None Findings: Normal vertebral body alignment. No acute fractures or dislocation. There is multiple level degenerative disc and facet change. There is aortoiliac calcification. IMPRESSION: No acute findings. This document has been electronically signed by: Lencho Marie MD on 11/14/2024 08:41:20
== END 2024-11-13 11:07 | disposition home or self-care (01) ==
LOC: HO.HMGCX 11:06
PROVIDERS: PCP Internal Medicine; Visit Provider Internal Medicine
DX: M54.30 Sciatica, unspecified side (principal); I10 Essential (primary) hypertension; Z79.899 Other long term (current) drug therapy
CPT/HCPCS: 72100; 96127; 99212

== ENCOUNTER → 2024-11-13 12:05 | Outpatient (BNV) | payer MEDICARE, SELFPAY | PROVIDERS: PCP Internal Medicine; Visit Provider Specialist | DX: M54.30 Sciatica, unspecified side (principal) | CPT/HCPCS: 72100 ==

== ENCOUNTER 2025-01-06 09:00 | Outpatient (RCR) | payer MEDICARE, SELFPAY ==
--- NOTE | 2024-12-02 10:56 | MHC.PT.EP ---
[facility] [place] [facility] [place] Office [place] Office [address] [phone] F: [phone] F: [phone] F: [phone] F: [phone] Physical Therapy Plan of Care Date of Evaluation: 12/02/24 Date of Surgery: Diagnosis: sciatica Assessment: Patient is a 69 year old R handed male who presents with s/s consistent with sciatica. He does not work but does like to stay active and walk during the day. Patient past medical history includes OA and dizziness. Current impairments include pain, posture, flexibility, ROM, strength, activity tolerance and functional mobility. Functional limitations include decreased ability to walk, stand, shop, run errands, be active at home and in the community. Patient is motivated with good rehab potential. Skilled PT will address impairments and functional limitations in order to achieve goals. Frequency and Duration: The patient will be seen 2x/week for 5 weeks Short Term Goals: I with HEP - 2 weeks min tight b/l gastroc 3 weeks 90/90 lacking < 25 b/l - 3 weeks Penitentiary Goals: Oswestry 12% or less - 5 weeks AROM rotation 75% and pain free to L - 5 weeks centralized s/s, max pain/discomfort 2/10 with daily activities. Treatment Plan: Modalities to reduce pain, spasms and effusion. Manual therapy to restore motion and function. Therapeutic exercise to improve strength and flexibility. Neuromuscular re-education for posture and balance. Therapeutic activities to return to functional activities of daily living. Electronically signed by: Shmuel Benjamin, PT Please sign and return to therapist. Thank you for your referral.
--- NOTE | 2025-02-12 09:34 | MHC.PT.DC ---
[facility] [place] Office [place] Office [place] Office [address] Gita Garza [address] [phone] F: [phone] F: [phone] F: [phone] F: [phone] Physical Therapy Discharge Report Diagnosis: sciatica Date of Surgery: Date of Evaluation: 12/02/24 Date of Discharge: Treatments to Date: 8 Cancellations to Date: No Shows to Date: Discharge Status: Improved Function Independent with HEP Discharge Summary: 01/06/25: pt has progressed well symptomatically. He is I with HEP and attending a gym. min tight b/l gastroc, 90/90 lacking 20 b/l. AROM rotation 75% and pain free. he is appropriate to d/c to HEP At this time. 12/31/24: pt has been progressing well with skilled PT. no adverse reactions. s/s reduced significantly. we will likely d/c to HEP next week. 12/29/24: continues to improve with less s/s and improved function. going to the gym several times per week. 12/24/24: pt continues to respond well and is compliant HEP, I with it. we will continue to progress as tolerated with hip and core strength. 12/22/24: pt responding well. some hip discomfort which we discussed. able to add some stretching for hip and back without adverse reactions. 12/17/24: pt states that he has mostly no pain and can walk unlimited. we will continues to progress strength and HEP as indicated. 12/15; Pt felt he has too many exs. Pt works out at gym and also does yoga and stretces. Possibly NV reduce stretches and work more on strengthening? 12/09; Pt stated he feels good. Hip fatigued after hip exs. 12/04/24: pt with good response so far. appropriate to added hip and core strength as tolerated. Patient is a 69 year old R handed male who presents with s/s consistent with sciatica. He does not work but does like to stay active and walk during the day. Patient past medical history includes OA and dizziness. Current impairments include pain, posture, flexibility, ROM, strength, activity tolerance and functional mobility. Functional limitations include decreased ability to walk, stand, shop, run errands, be active at home and in the community. Patient is motivated with good rehab potential. Skilled PT will address impairments and functional limitations in order to achieve goals. Electronically signed by: Shmuel Benjamin, PT Please sign and return to therapist. Thank you for your referral.
== END 2025-02-12 09:35 | disposition home or self-care (01) ==
LOC: HO.PTCHIC 09:00
PROVIDERS: PCP Internal Medicine; Visit Provider Internal Medicine
DX: M54.30 Sciatica, unspecified side (principal)
CPT/HCPCS: 97110; 97161

== ENCOUNTER 2025-03-23 06:11 | Outpatient (REF) | payer MEDICARE, SELFPAY ==
[2025-03-23 10:04] LABS: MANUAL DIFF FLAG NO
[2025-03-23 10:17] LABS: Hematocrit 45.2 % (42.0-52.0); Hemoglobin 15.1 g/dl (14.0-18.0); Imm Gran Abs Auto 0.01 X10*3/uL (0.00-0.03); Imm Gran Pct Auto 0.1 % (0.0-0.4); Lymphocytes Absolute Auto 1.8 X10*3/uL (1.2-4.9); Mean Corpuscular HGB Conc 33.4 g/dl (31.0-36.0); Mean Corpuscular Hemoglobin 30.6 pg (27.0-33.0); Mean Corpuscular Volume 91.5 fL (80.0-98.0); NRBC Abs Auto 0.000 X10*3/uL (0.0-0.012); NRBC Pct Auto 0.0 /100WBC (0.0-0.2); Platelet Count 341 X10*3/uL (160-400); Red Blood Count 4.94 X10*6/uL (4.60-5.80); White Blood Count 7.6 X10*3/uL (4.8-10.8)
[2025-03-23 10:31] LABS: Alanine Aminotransferase 17 U/L (0-40); Albumin Level 4.5 g/dL (3.5-5.0); Alkaline Phosphatase 33 U/L (39-117); Anion Gap 13 (12-20); Aspartate Amino Transferase 28 U/L (5-37); Blood Urea Nitrogen 11 mg/dL (9-16); Calcium 9.0 mg/dL (8.4-10.2); Carbon Dioxide 27 mmol/L (22-29); Chloride 107 mmol/L (96-108); Cholesterol 168 mg/dL (<200); Estimated Glomerular Filt Rate > 60; HDL Cholesterol 44 mg/dL (>40); Potassium 4.1 mmol/L (3.3-5.1); Sodium 143 mmol/L (135-145); Total Protein 7.2 g/dL (6.5-8.0); Triglycerides 92 mg/dL (<150)
== END 2025-03-23 06:12 | disposition home or self-care (01) ==
LOC: HO.HMGCLDS 06:11
PROVIDERS: PCP Internal Medicine; Visit Provider Internal Medicine
DX: Z00.00 Encounter for general adult medical examination without abnormal findings (principal); I10 Essential (primary) hypertension; R73.9 Hyperglycemia, unspecified
CPT/HCPCS: 36415; 80053; 80061; 85025

== ENCOUNTER 2025-04-13 09:58 | Outpatient (AMB) | payer OTHER, SELFPAY ==
[2025-04-13 10:01] VITALS: BP 124/66; PULSE 60; RESP 16; TEMP 36.6; O2SAT 98; BMI 22.7
--- NOTE | 2025-04-13 10:01 | MHC.PC.OV ---
Vital Signs 04/13/25 10:01 Height 5 ft 8 in Weight 149 lb BMI 22.7 BP 124/66 Blood Pressure Location Rt brachial Position Sitting Respiration 16 Pulse 60 Pulse Source Pulse Oximeter Temp 97.9 F Temp Source Oral Pulse Oximetry (%) 98 Oxygen Delivery Method Room Air Intake Visit Reasons: Annual Intake Note: Pt is here today for PE. Allergies Penicillins (PENICILLINS) Allergy (Unknown, Verified 04/13/25 10:14) RASH Medication List - Last Reconciled 04/13/25 by Lore Bishop MD amlodipine 2.5 mg PO DAILY omeprazole 20 mg PO .qd Tobacco use date assessed: 04/13/25 Fall risk assessment: No Falls in past year Last assessed Fall Risk: 04/13/25 Dental Screening Dental Screen Date: 04/13/25 Did you have a dental visit in the last 12 months?: Yes Did you have a dental problem in the last 6 months where you did not have access to dental care?: No Was dental information given to patient?: Patient has dentist HPI Annual HPI Details Pt presents for PE. [facility] Medical History (Updated 04/13/25 @ 11:42 by Lore Bishop MD) Colonoscopy refused Annual physical exam Hearing loss Vertigo Hyperglycemia Normal colonoscopy HTN (hypertension) Cervical spine degeneration GERD (gastroesophageal reflux disease) Surgical History History of left inguinal hernia repair H/O cervical spine surgery Hx of cholecystectomy Family History Father No problems noted. 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 1. Little interest or pleasure in doing things: not at all 2. Feeling down, depressed, or hopeless: several days 3. Trouble falling or staying asleep, or sleeping too much: not at all 4. Feeling tired or having little energy: several days 5. Poor appetite or overeating: not at all 6. Feeling bad about yourself - or that you are a failure or have let yourself or your family down: not at all 7. Trouble concentrating on things, such as reading the newspaper or watching television: not at all 8. Moving or speaking so slowly that other people could have noticed. Or the opposite - being so fidgety or restless that you have been moving around a lot more than usual: not at all 9. Thoughts that you would be better off or of hurting yourself in some way: several days Total score: 3 Depression Screening Interpretation: Negative Depression Screening Done: Yes 21560 - PHQ-9 Billing: Yes Source: Developed by Drs. Carl Jeffers, Pam Llanos, Pepito Lang and colleagues, with an educational bradly from [employer]. Thrive Questionnaire Date Thrive assessed: 04/13/25 I am a: Patient What is your living situation today?: I have a steady place to live Within the past 12 months, did the food you bought not last and you didn't have the money to get more?: Never true Within the past 12 months, did you worry whether your food would run out before you got money to buy more?: Never true Do you have trouble paying for medicines?: No Do you have trouble getting transportation to medical appointments?: No Do you have trouble paying your heating and electricity bill?: No Do you have trouble taking care of your child, family member or friend?: No Do you have trouble with day-to-day activities such as bathing, preparing meals, shopping, managing finances, etc.?: No Are you currently unemployed and looking for a job?: No Are you interested in more education?: No Please select the resources that you would like help with: None THRIVE Score: 0 AUDIT C Alcohol Use Questionnaire (AUDIT-C) 1. How often do you have a drink containing alcohol?: Never 3. How often do you have six or more drinks on one occasion?: Never Total Score: 0 BONITA-7 AMB Questionnaire BONITA-7 Date BONITA - 7 assessed: 04/13/25 Feeling nervous, anxious, or on edge: 0 = Not at all Not being able to stop or control worryin = Not at all Worrying too much about different things: 0 = Not at all Trouble relaxin = Not at all Being so restless that it is hard to sit still: 0 = Not at all Becoming easily annoyed or irritable: 0 = Not at all Feeling afraid as if something awful might happen: 0 = Not at all Total BONITA-7 score (0-4 normal; 5-9 mild; 10-14 moderate; 15-21 severe): 0 Source: Developed by Drs. Carl Jeffers, Pam Llanos, Pepito Lang and colleagues, with an educational bradly from [employer]. Review of Systems Const All systems reviewed & are unremarkable except as noted in HPI and below Eyes Reports no additional complaints ENT Reports no additional complaints Card Reports no additional complaints Resp Reports no additional complaints GI Reports no additional complaints Reports no additional complaints Physical exam (Primary Care) Vital Signs: Last Vital Signs Temp 97.9 F 04/13/25 10:01 Pulse 60 04/13/25 10:01 Resp 16 04/13/25 10:01 BP 124/66 04/13/25 10:01 Pulse Ox 98 04/13/25 10:01 Oxygen Delivery Method Room Air 04/13/25 10:01 BMI result Body Mass Index 22.7 Tobacco/Smoking Status: Tobacco use Status Tobacco use date assessed 04/13/25 04/13/25 10:19 Patient Tobacco Use Status Never used Tobacco 04/13/25 10:01 e-Cigarette/Vaping Use Never Used 04/13/25 10:01 PHQ-9: PHQ-9 Score PHQ-9: Total score 3 04/13/25 10:19 Depression Screening Interpretation: Negative Thrive Assessment: Date of Thrive Assessment Date Thrive assessed 04/13/25 04/13/25 10:19 Const General: no acute distress HENMT Head: Yes normal to inspection Ears: hearing grossly normal bilaterally General nose exam: Normal external nose present Face and sinus: Yes normal facial exam Mouth: Normal oral and palatal mucosa present Eyes General: appearance normal, both eyes and all related structures Neck Neck: Yes no lymphadenopathy and Yes supple Resp Effort & Inspection: normal respiratory effort Auscultation: clear to auscultation bilaterally Cardio Rhythm: regular rhythm Heart sounds: S1 normal heart sound present and S2 normal heart sound present GI Inspection: Yes normal to inspection Palpation (GI): Soft to palpation Percussion: Yes normal to percussion Auscultation: normal bowel sounds Extrem General: Yes no clubbing, cyanosis or edema Coding Level of Care Code Est Pt Prev Care >65y(73112) Diagnoses HTN (hypertension) I10 Annual physical exam Z00.00 Colonoscopy refused Z53. Additional Codes PHQ-9 - 32980 - PHQ-9 Billing: Yes ([id number]) Assessment & Plan Assessment & Plan (1) HTN (hypertension): Code(s): I10 - Essential (primary) hypertension Category: Medical Plan: cont Amlodipine (2) Annual physical exam: Comment: Patient refused colonoscopy and Cologuard 04/2025 Code(s): Z00.00 - Encounter for general adult medical examination without abnormal findings Category: Medical Plan: well balanced diet, regular exercise discussed with the patient. Colon cancer screening discussed with the patient he declined colonoscopy and Cologuard (3) Colonoscopy refused: Comment: Patient refused colonoscopy and Cologuard 04/2025 Code(s): Z53.20 - Procedure and treatment not carried out because of patient's decision for unspecified reasons Category: Medical Plan: Patient refused colonoscopy Medications: Changed From omeprazole 20 mg PO BID 180 caps 3RF To omeprazole 20 mg PO .qd 90 caps 3RF Refilled amlodipine 2.5 mg PO DAILY 90 tabs 3RF
== END 2025-04-13 11:08 | disposition home or self-care (01) ==
LOC: HO.HMCC 09:59
PROVIDERS: PCP Internal Medicine; Visit Provider Internal Medicine
DX: I10 Essential (primary) hypertension (principal); Z00.00 Encounter for general adult medical examination without abnormal findings; Z53.20 Procedure and treatment not carried out because of patient's decision for unspecified reasons

== ENCOUNTER → 2025-04-13 09:58 | Outpatient (BNVA) | payer MEDICARE, SELFPAY | PROVIDERS: PCP Internal Medicine; Visit Provider Internal Medicine | DX: Z00.00 Encounter for general adult medical examination without abnormal findings (principal); I10 Essential (primary) hypertension | CPT/HCPCS: 96127; 99397 ==